=== PATIENT | male | born 1940 | race Caucasian/White ===

== ENCOUNTER 2018-11-14 09:10 | Inpatient (IN) | payer MEDICARE, BC ==
[~2018-11-14] VITALS: Ht 167.6 cm; Wt 87.1 kg
--- NOTE | 2018-11-14 09:12 | NUR ---
PT [id number], FROM HOME, C/O WEAKNESS, NAUSEA VOMITING, EMS STATES HE FELL THIS MORNING FOUND HIM ON THE FLOOR, BS 197, PT IS AAOX2, NOT IN RESPIRATORY DISTRESS, HOOKED TO MONITOR, KEPT RESTED AND COMFORTABLE, WILL CONTINUE TO MONITOR.
--- NOTE | 2018-11-14 09:20 | NUR ---
SEEN AND EXAMINED BY DR. HALL.
--- NOTE | 2018-11-14 09:24 | NUR ---
IV LINE ESTABLISHED, BLOOD DRAWNED AND SENT TO LAB.
[2018-11-14] MEDS ORDERED: ONDANSETRON HCL/PF 4 MG/2 ML VIAL ONE (09:26)
[2018-11-14] MEDS ORDERED: IV NS 0.9% 500 ML BAG IV ONE (09:30)
[2018-11-14] MEDS ORDERED: ONDANSETRON HCL/PF 4 MG/2 ML VIAL IVP ONE (09:30)
--- NOTE | 2018-11-14 09:31 | NUR ---
URINE SPECIMEN COLLECTED VIA STRAIGHT CATH AND SENT TO LAB.
[2018-11-14 09:32] LABS: BASOPHILS % (AUTO) 0.2 % (0.0-2.0); HEMATOCRIT 45 % (39-51); HEMOGLOBIN 15.8 g/dL (13.5-17.5); LYMPHOCYTES # (AUTO) 0.7 /CMM (0.8-4.8); LYMPHOCYTES % (AUTO) 8.7 % (20.0-44.0); MEAN CORPUSCULAR HGB CONC 35 g/dl (31.0-36.0); MEAN CORPUSCULAR VOLUME 90 fL (80-96); MONOCYTES # (AUTO) 0.5 /CMM (0.1-1.30); NEUTROPHILS # (AUTO) 6.5 /CMM (1.8-8.9); NEUTROPHILS % (AUTO) 85.1 % (43.0-81.0); PLATELET COUNT (AUTO) 239 /CMM (150-450); RED BLOOD CELL COUNT(AUTO) 5.03 MIL/uL (4.5-6.0); WHITE BLOOD COUNT (AUTO) 7.7 K/uL (4.3-11.0)
[2018-11-14 09:34] LABS: APPEARANCE,URINE Clear (CLEAR); BILIRUBIN,URINE Negative (NEGATIVE); BLOOD, URINE Small Ery/uL (NEGATIVE); COLOR,URINE Yellow (YELLOW); KETONES,URINE 80 (NEGATIVE); LEUKOCYTE ESTERASE ,URINE Negative (NEGATIVE); NITRITE, URINE Negative (NEGATIVE); PH,URINE 5.5 (5.0-8.0); PROTEIN,URINE 100 mg/dl (NEGATIVE); UGLUCOSE 500 MG/DL mg/dL (NEGATIVE); UROBILINOGEN,URINE 0.2 EU/dL (0.2)
[2018-11-14 09:35] LABS: BACTERIA,URINE Rare /HPF (None Seen); SQUAMOUS EPITHELIAL CELL,UR None Seen /HPF (None Seen); WBC,URINE 0-2 /HPF (0-3)
[2018-11-14] MEDS ORDERED: FLAX10003 PO (09:38)
[2018-11-14] MEDS ORDERED: GLIM2TAB3 PO (09:38)
[2018-11-14] MEDS ORDERED: VIT1CAPS44 PO (09:38)
[2018-11-14] MEDS ORDERED: AMLO5TAB4 PO (09:38)
[2018-11-14] MEDS ORDERED: CHOL400D16 PO (09:38)
[2018-11-14] MEDS ORDERED: MULT-1169 PO (09:38)
[2018-11-14] MEDS ORDERED: METF500S7 PO (09:38)
[2018-11-14] MEDS ORDERED: [UNRECOGNIZED DRUG - CODE] PO (09:38)
[2018-11-14] MEDS ORDERED: UBID100C13 PO (09:38)
[2018-11-14] MEDS ORDERED: LISI-607 PO (09:38)
[2018-11-14] MEDS ORDERED: RED600CA2 PO (09:38)
[2018-11-14 09:52] LABS: SODIUM SERUM 131 mmol/L (136-145)
[2018-11-14 09:53] LABS: CALCIUM, SERUM 9.2 mg/dL (8.5-10.1); CARBON DIOXIDE 25 mmol/L (21-32); CHLORIDE 94 mmol/L (98-107); CREATININE 1.1 mg/dL (0.6-1.3); GLUCOSE 234 mg/dL (74-106); UREA NITROGEN, BLOOD 18 mg/dL (7-18)
[2018-11-14 09:58] LABS: BILIRUBIN,TOTAL 0.7 mg/dL (0.2-1.0)
[2018-11-14 09:59] LABS: ALANINE AMINOTRANSFERASE 21 U/L (12-78); ALBUMIN 4.1 g/dL (3.4-5.0); ALKALINE PHOSPHATASE 82 U/L (46-116); ASPARTATE AMINOTRANSFERASE 24 U/L (15-37); BILIRUBIN,DIRECT 0.2 mg/dL (0.0-0.2); TOTAL PROTEIN, SERUM 7.8 g/dL (6.4-8.2)
--- NOTE | 2018-11-14 10:09 | NUR ---
PT IS WHEELED TO CT SCAN VIA [facility].
[2018-11-14] MEDS ORDERED: IV NS 0.9% 250 ML IV ONE (10:20)
[2018-11-14] MEDS ORDERED: IOHEXOL-300 100 ML VIAL IV ONE (10:20)
[2018-11-14] MEDS ORDERED: CT SWABBABLE VALVE TRANS SET 1 EA INFUS.SET MC ONE (10:20)
[2018-11-14] MEDS ORDERED: IV NS 0.9% 1,000 ML BAG IV ONE (11:00)
--- NOTE | 2018-11-14 11:08 | NUR ---
PAGED EPIC ALIYAH CALLE.
--- NOTE | 2018-11-14 11:25 | NUR ---
AT BEDSIDE FOR EVAL.
--- NOTE | 2018-11-14 11:28 | NUR ---
TELE 117-2
--- NOTE | 2018-11-14 11:40 | NUR ---
REPORT GIVEN TO EBONY CHAVARRIA FOR LITO.
[2018-11-14 12:00] VITALS: BP 146/76
[2018-11-14 12:55] VITALS: BP 146/76
[2018-11-14] MEDS ORDERED: ACETAMINOPHEN 325 MG TABLET PO PRN (13:00)
[2018-11-14] MEDS ORDERED: MAGNESIUM HYDROXIDE 30 ML UDC PO PRN (13:00)
[2018-11-14] MEDS ORDERED: DEXTROSE 50%-WATER 50 ML DISP.SYRIN IV PRN (13:00)
[2018-11-14] MEDS ORDERED: HYDROCODONE/APAP 5/325MG 1 EACH TABLET PO PRN (13:00)
[2018-11-14] MEDS ORDERED: Z GUARD REMEDY 2 OZ OINT TP PRN (13:00)
[2018-11-14] MEDS ORDERED: MAG HYDROX/AL HYDROX/SIMETH 30 ML UDC PO PRN (13:00)
[2018-11-14] MEDS ORDERED: *INSULIN REGULAR(HUMULIN R)HUM 100 UNIT/ML VIAL SQ PRN (13:00)
[2018-11-14] MEDS ORDERED: ONDANSETRON HCL/PF 4 MG/2 ML VIAL IVP PRN (13:00)
[2018-11-14 16:00] VITALS: BP 151/84
--- NOTE | 2018-11-14 16:36 | NUR ---
This is an admission note for a 78 year old male patient of Doctor Mirza who just returned to [place] via jet flight yesterday evening. Patient complains of dizziness, weakness, and spouse found patient on the floor of his room at home today. Family history includes a mother with a stroke in her 70's and a father with a major heart attack in his 60's. The patient does have a severe case of weakness and difficulty balancing. Even when attempting to ambulate with assistance the patient is off balance, unable to take a step. Post activity he complains of dizziness. The right arm is weaker than the left arm his which is his strongest extremity. This is a full code patient with his spouse as Durable Power Of Documentation Nurse due to his confusion. 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 There is a computed tomography findings of diverticulosis, as well as degenerative changes of spine, and a normal chest x-ray. The patient has low sodium and increased lactic acid, 4, refractory to a fluid bolus of saline, 2000 milliliters, decreasing to a 1.7. The patient is admitted to the direct observation and telemetry floor for further evaluation and treatment. Kevin Marx RN
[2018-11-14] MEDS: BLOOD SUGAR DIAGNOSTIC 1 EACH STRIP VI SCH ×2 (18:14→22:22)
[2018-11-14] MEDS: INSULIN REGULAR, HUMAN 100 UNIT/ML 3 ML VIAL SQ PRN ×2 (18:17→22:26)
[2018-11-14] MEDS: IV NS 0.9% 1,000 ML IV PRN (18:21)
--- NOTE | 2018-11-14 19:45 | NUR ---
CHIPPER MACHINE OPERATOR OPENING NOTE, RECEIVED PATIENT IN BED AWAKE, ALERT/ ORIENTED X2-3, NO SOB OR ANY DISTRESS NOTED AT THIS TIME. IV LAC#20 NO INFILTRATION NOTED. PATIENT HAS GENERALIZED EDEMA. ALL SAFETY MEASURES IN PLACE, BED LOCKED/LOW AND CALL LIGHT WITHIN REACH WILL CONTINUE TO MONITOR.
[2018-11-14 20:00] VITALS: BP 151/75
[2018-11-14 22:00] VITALS: BP 131/72
[2018-11-15] VITALS: BP 131/72
[2018-11-15 04:00] VITALS: BP 151/79
--- NOTE | 2018-11-15 07:30 | NUR ---
PLASTERER SPRAY GUN CLOSING NOTE, PATIENT IN BED AWAKE, ALERT/ ORIENTED X2-3, NO SOB OR ANY DISTRESS NOTED AT THIS TIME. IV LAC#20 NO INFILTRATION NOTED. ALL SAFETY MEASURES IN PLACE, BED LOCKED/LOW AND CALL LIGHT WITHIN REACH. WILL ENDORSE PATIENT TO PM RN FOR LITO.
[2018-11-15] MEDS: BLOOD SUGAR DIAGNOSTIC 1 EACH STRIP VI SCH ×4 (07:54→22:55)
[2018-11-15 08:00] VITALS: BP 139/75
[2018-11-15 08:12] LABS: BASOPHILS % (AUTO) 0.4 % (0.0-2.0); EOSINOPHILS % (AUTO) 0.7 % (0.0-6.0); HEMATOCRIT 44 % (39-51); HEMOGLOBIN 15.2 g/dL (13.5-17.5); LYMPHOCYTES # (AUTO) 1.9 /CMM (0.8-4.8); LYMPHOCYTES % (AUTO) 23.7 % (20.0-44.0); MEAN CORPUSCULAR HGB CONC 34 g/dl (31.0-36.0); MEAN CORPUSCULAR VOLUME 90 fL (80-96); MONOCYTES # (AUTO) 0.9 /CMM (0.1-1.30); MONOCYTES % (AUTO) 10.9 % (2.0-12.0); NEUTROPHILS # (AUTO) 5.1 /CMM (1.8-8.9); NEUTROPHILS % (AUTO) 64.3 % (43.0-81.0); PLATELET COUNT (AUTO) 225 /CMM (150-450); RED BLOOD CELL COUNT(AUTO) 4.93 MIL/uL (4.5-6.0); WHITE BLOOD COUNT (AUTO) 7.9 K/uL (4.3-11.0)
[2018-11-15 08:24] LABS: CALCIUM, SERUM 8.7 mg/dL (8.5-10.1); CREATININE 0.9 mg/dL (0.6-1.3); MAGNESIUM 1.9 mg/dL (1.8-2.4); PHOSPHORUS 2.4 mg/dL (2.5-4.9); POTASSIUM 4.1 mmol/L (3.5-5.1)
[2018-11-15] MEDS ORDERED: Medication Not On Formulary EA (Flaxseed Oil 1,000 MG) PO SCH (09:00)
[2018-11-15] MEDS: ASPIRIN 325 MG TABLET PO SCH (09:12)
[2018-11-15] MEDS: AMLODIPINE BESYLATE 5 MG TABLET PO SCH (09:13)
[2018-11-15] MEDS: CHOLECALCIFEROL 1,000 UNIT TABLET (VIT D3) PO SCH (09:13)
[2018-11-15] MEDS: LISINOPRIL (5MG) 5 MG TABLET PO SCH (09:14)
[2018-11-15] MEDS: IV NS 0.9% 1,000 ML IV PRN (09:28)
[2018-11-15] MEDS: INSULIN REGULAR, HUMAN 100 UNIT/ML 3 ML VIAL SQ PRN ×2 (09:33→13:17)
[2018-11-15] MEDS ORDERED: NEUTRA PHOS 1 POWD.PACKET PO ONE (11:30)
[2018-11-15 12:00] VITALS: BP 121/68
[2018-11-15 16:00] VITALS: BP 123/72
--- NOTE | 2018-11-15 18:53 | NUR ---
ms rn notes pt in bed, at bedside. gave pt 2 orange juice for bs 69 mg/dl. bs now 138 mg/dl. endorsed to pm nurse for lynette.
[2018-11-15 20:00] VITALS: BP 156/83
[2018-11-16] MEDS: IV NS 0.9% 1,000 ML IV PRN (00:17)
[2018-11-16 04:00] VITALS: BP 156/78
[2018-11-16] MEDS: BLOOD SUGAR DIAGNOSTIC 1 EACH STRIP VI SCH ×4 (07:40→22:23)
[2018-11-16] MEDS: INSULIN REGULAR, HUMAN 100 UNIT/ML 3 ML VIAL SQ PRN ×3 (07:56→17:43)
[2018-11-16 08:00] VITALS: BP 153/90
[2018-11-16] MEDS: ASPIRIN 325 MG TABLET PO SCH (08:01)
[2018-11-16] MEDS: LISINOPRIL (5MG) 5 MG TABLET PO SCH (08:01)
[2018-11-16] MEDS: AMLODIPINE BESYLATE 5 MG TABLET PO SCH (08:01)
[2018-11-16] MEDS: CHOLECALCIFEROL 1,000 UNIT TABLET (VIT D3) PO SCH (08:01)
[2018-11-16 16:00] VITALS: BP 144/81
--- NOTE | 2018-11-16 19:30 | NUR ---
MS RN OPENING NOTE RECEIVED PATIENT A/O X 2. PATIENT SEEMS CONFUSED BUT AT THE MOMENT SHOWS NO SIGNS OF DISTRESS. PATIENT IS ON ROOM AIR WITH NO SOB. AT THE MOMENT PATIENT HAS NO IV ACCESS BUT WILL APPLY ONE. PATIENT IS BED REST WITH BED ALARM ON. AND A DIAPER IN TACT. ALL SAFETY PRECAUTION APPLIED BED PLACED LOW, SIDE RAILS UP X3, AND CALL LIGHT IS WITHIN REACH. WILL CONTINUE TO MONITOR PATIENT.
[2018-11-16 20:00] VITALS: BP 157/84
[2018-11-17] MEDS: IV NS 0.9% 1,000 ML IV PRN (02:07)
[2018-11-17 04:00] VITALS: BP 140/82
[2018-11-17] MEDS: BLOOD SUGAR DIAGNOSTIC 1 EACH STRIP VI SCH ×2 (07:10→12:36)
--- NOTE | 2018-11-17 07:38 | NUR ---
MS RN CLOSING NOTE PATIENT LYING IN BED WITH NO SIGNS OF DISTRESS. PATIENT ON ROOM AIR WITH NO SOB. ALL SAFETY PRECAUTIONS APPLIED. CALL LIGHT WITHIN REACH, BED LOCKED IN LOW POSITION, AND SIDE RAILS UP X3. ENDORSED PATIENT TO MORNING NURSE.
[2018-11-17 08:00] VITALS: BP 138/86
[2018-11-17 09:32] VITALS: BP 138/86
[2018-11-17] MEDS: ASPIRIN 325 MG TABLET PO SCH (09:32)
[2018-11-17] MEDS: CHOLECALCIFEROL 1,000 UNIT TABLET (VIT D3) PO SCH (09:32)
[2018-11-17] MEDS: AMLODIPINE BESYLATE 5 MG TABLET PO SCH (09:32)
[2018-11-17] MEDS: LISINOPRIL (5MG) 5 MG TABLET PO SCH (09:32)
[2018-11-17] MEDS: INSULIN REGULAR, HUMAN 100 UNIT/ML 3 ML VIAL SQ PRN (12:39)
--- NOTE | 2018-11-17 14:49 | NUR ---
RN DC NOTE RECEIVED DC ORDER TO [facility]. REPORT GIVEN TO EBONY BEJARANO. PATIENT A/OX1-2, FORGETFUL. ON ROOM AIR, NO RESPIRATORY DISTRESS. IV REMOVED, CATH INTACT, DRESSING APPLIED. WHEN PATIENT GOT UP TO CHAIR, HE REPORTED BEING DIZZY. HX VERTIGO ENDORSED TO CARLEE. AT BEDSIDE, SIGNED DC PAPERWORK + BELONGINGS CHECKLIST. NO WOUND PICTURES TO BE TAKEN. DENIES HEADACHE AND NAUSEA. PATIENT STABLE. NO NEW MEDS.
== END 2018-11-17 15:19 | DRG 640 ==
LOC: ER 09:12 → TELE1 11:30 → MEDSG1 11-15 12:14
PROVIDERS: ADMIT Internal Medicine; ATTEND Nurse Practitioner Acute Care
DX: E86.0 Dehydration (principal); G93.41 Metabolic encephalopathy; E11.9 Type 2 diabetes mellitus without complications; E86.1 Hypovolemia; E87.1 Hypo-osmolality and hyponatremia; Z90.49 Acquired absence of other specified parts of digestive tract; G20 Parkinson's disease; I10 Essential (primary) hypertension; F02.80 Dementia in other diseases classified elsewhere, unspecified severity, without behavioral disturbance, psychotic disturbance, mood disturbance, and anxiety; E87.2 Acidosis; Z86.73 Personal history of transient ischemic attack (TIA), and cerebral infarction without residual deficits; H81.10 Benign paroxysmal vertigo, unspecified ear; R90.89 Other abnormal findings on diagnostic imaging of central nervous system; Z79.84 Long term (current) use of oral hypoglycemic drugs
CPT/HCPCS: 36415; 70450-TC; 71045-TC; 72125-TC; 80048-TC; 80076-TC; 81000-TC; 82550-TC; 82962-TC; 83605-TC; 83735-TC; 84100-TC; 84443-TC; 84484-TC; 85025-TC; 85730-TC; 87040-TC; 87081-TC; 87086-TC; 97110-TC; 97116-TC; 97530-TC; G0378; J1815; J2405; J3490; J7030; J7040; J7050; Q9967

== ENCOUNTER 2021-12-07 09:47 | Emergency (ER) | payer MEDICARE, BC ==
[~2021-12-07] VITALS: Ht 165.1 cm; Wt 80.3 kg
[~2021-12-07 09:47] MED LIST: AMLO5TAB4 PO; CHOL400D8 PO; FLAX10003 PO; GLIM2TAB31 PO; LISI-768 PO; METF500S7 PO; MULT-1169 PO; RED600CA2 PO; UBID100C13 PO; VIT1CAPS44 PO; [UNRECOGNIZED DRUG - CODE] PO
[2021-12-07 09:50] VITALS: BP 155/79
--- NOTE | 2021-12-07 10:26 | NUR ---
PT TAKEN TO RADIOLOGY
[2021-12-07] MEDS ORDERED: ACETAMINOPHEN 650 MG/20.3 ML UDC PO ONE (10:30)
--- NOTE | 2021-12-07 11:30 | NUR ---
INFORMED THAT PATIENT WILL BE DISCHARGED HOME
--- NOTE | 2021-12-07 11:35 | NUR ---
[facility] CALLED FOR TRANSPORT ETA 1330 PER SILVERIO.
--- NOTE | 2021-12-07 13:38 | NUR ---
[facility] AT BEDSIDE.
--- NOTE | 2021-12-07 13:39 | NUR ---
Patient discharged to home in stable condition. Written and verbal after care instructions given. Patient verbalizes understanding of instruction. Picked up by [facility] [email or web address].
== END 2021-12-07 14:15 | disposition home or self-care (01) ==
LOC: ER 09:52
DX: S29.9XXA Unspecified injury of thorax, initial encounter (principal); I10 Essential (primary) hypertension; E11.9 Type 2 diabetes mellitus without complications; Z79.899 Other long term (current) drug therapy; W06.XXXA Fall from bed, initial encounter; Y93.89 Activity, other specified; Y92.89 Other specified places as the place of occurrence of the external cause; Y99.8 Other external cause status
CPT/HCPCS: 72128-TC

== ENCOUNTER 2022-01-22 15:29 | Inpatient (IN) | payer MEDICARE, BC ==
[~2022-01-22] VITALS: Ht 165.1 cm; Wt 83.9 kg
[2022-01-22] MEDS ORDERED: IV NS 0.9% 1,000 ML BAG IV ONE (17:00)
[2022-01-22 17:23] LABS: BASOPHILS # (AUTO) 0.1 K/uL (0.0-0.2); BASOPHILS % (AUTO) 0.7 % (0.0-2.0); EOSINOPHILS % (AUTO) 0.8 % (0.0-6.0); HEMATOCRIT 42 % (39-51); HEMOGLOBIN 13.8 g/dL (13.5-17.5); LYMPHOCYTES # (AUTO) 0.8 K/uL (0.8-4.8); LYMPHOCYTES % (AUTO) 10.4 % (20.0-44.0); MEAN CORPUSCULAR HGB CONC 33 g/dl (31.0-36.0); MEAN CORPUSCULAR VOLUME 87 fL (80-96); MONOCYTES # (AUTO) 0.6 K/uL (0.1-1.30); MONOCYTES % (AUTO) 6.9 % (2.0-12.0); NEUTROPHILS # (AUTO) 6.7 K/uL (1.8-8.9); NEUTROPHILS % (AUTO) 81.2 % (43.0-81.0); PLATELET COUNT (AUTO) 297 K/uL (150-450); WHITE BLOOD COUNT (AUTO) 8.2 K/uL (4.3-11.0)
[2022-01-22 17:26] LABS: BILIRUBIN,URINE NEGATIVE (NEGATIVE); COLOR,URINE YELLOW (YELLOW); LEUKOCYTE ESTERASE ,URINE NEGATIVE (NEGATIVE); NITRITE, URINE NEGATIVE (NEGATIVE); PROTEIN,URINE NEGATIVE (NEGATIVE); UGLUCOSE NEGATIVE (NEGATIVE); UROBILINOGEN,URINE 0.2 EU/dL (0.2)
[2022-01-22 17:37] LABS: CALCIUM, SERUM 8.9 mg/dL (8.5-10.1); CARBON DIOXIDE 26 mmol/L (21-32); CHLORIDE 99 mmol/L (98-107); GLUCOSE 193 mg/dL (74-106); POTASSIUM 3.9 mmol/L (3.5-5.1); SODIUM SERUM 132 mmol/L (136-145); UREA NITROGEN, BLOOD 21 mg/dL (7-18)
[2022-01-22 17:40] LABS: ALANINE AMINOTRANSFERASE 35 U/L (12-78); ALBUMIN 3.6 g/dL (3.4-5.0); ALKALINE PHOSPHATASE 98 U/L (46-116); ASPARTATE AMINOTRANSFERASE 21 U/L (15-37); BILIRUBIN,DIRECT 0.1 mg/dL (0.0-0.2); BILIRUBIN,TOTAL 0.3 mg/dL (0.2-1.0); LIPASE 136 U/L (73-393); TOTAL PROTEIN, SERUM 7.2 g/dL (6.4-8.2)
[2022-01-22 18:17] LABS: BACTERIA,URINE None seen /HPF (None Seen); RBC,URINE 0-2 /HPF (0-2); SQUAMOUS EPITHELIAL CELL,UR 0-2 /HPF (None Seen); WBC,URINE 0-2 /HPF (0-3)
--- NOTE | 2022-01-22 19:05 | NUR ---
PT IN BED A/OX3 WITH GEN WEAKNESS NO AMBULATORY. L HAND #20G S/L PATENT AND INTACT. TOLERATING R/A WELL WITH NO RESP DISTRESS. AT PT'S BEDSIDE
[2022-01-22 19:08] LABS: BAND % (MANUAL) 1 % (0.0-5.0); LYMPHOCYTES % (MANUAL) 16 % (16-48); MONOCYTES % (MANUAL) 5 % (0-11.0); NEUTROPHILS % (MANUAL) 78 (42-76)
[2022-01-22] MEDS ORDERED: SENNOSIDES/DOCUSATE SODIUM 1 TAB TABLET PO SCH (20:00)
[2022-01-22] MEDS ORDERED: POLYETHYLENE GLYCOL 3350 17 GM POWD.PACK PO ONE (20:00)
--- NOTE | 2022-01-22 21:48 | NUR ---
COVID ANTIGEN SWAB COLLECTED AND SENT TO LAB
--- NOTE | 2022-01-22 22:23 | NUR ---
KATHERINE ROTHMAN GAS AND OIL CHECKER AT PT'S BEDSIDE DISCUSSING ADMISSION & CARE WITH FAMILY
[2022-01-22] MEDS ORDERED: MAG HYDROX/AL HYDROX/SIMETH 30 ML UDC PO PRN (22:30)
[2022-01-22] MEDS ORDERED: IV NS 0.9% 1,000 ML IV PRN (22:30)
[2022-01-22] MEDS ORDERED: Z GUARD REMEDY 4 OZ OINT TP PRN (22:30)
[2022-01-22] MEDS ORDERED: MAGNESIUM HYDROXIDE 30 ML UDC PO PRN (22:30)
[2022-01-22] MEDS ORDERED: ENOXAPARIN SODIUM 40 MG/0.4 ML DISP.SYRIN SQ SCH (22:30)
[2022-01-22] MEDS ORDERED: ACETAMINOPHEN 325 MG TABLET PO PRN (22:30)
[2022-01-22] MEDS ORDERED: ONDANSETRON HCL/PF 4 MG/2 ML VIAL IVP PRN (22:30)
[2022-01-22] MEDS ORDERED: DEXTROSE 50%-WATER 50 ML DISP.SYRIN IV PRN (22:30)
[2022-01-22] MEDS ORDERED: ZOLPIDEM TARTRATE 5 MG TABLET PO PRN (22:30)
[2022-01-23] MEDS ORDERED: LACTULOSE 10 G/15 ML UDC (PYXIS) PO ONE
--- NOTE | 2022-01-23 02:48 | NUR ---
PT SLEEPING WELL WITH NO ACUTE DISTRESS. SAFETY MEASURES IN PLACE
--- NOTE | 2022-01-23 05:08 | NUR ---
AIRLINE LOUNGE RECEPTIONIST AT PT'S BEDSIDE
--- NOTE | 2022-01-23 05:14 | NUR ---
IV ESTABLISHED RFA #18G S/L
[2022-01-23 05:23] LABS: BASOPHILS % (AUTO) 0.5 % (0.0-2.0); EOSINOPHILS % (AUTO) 2.2 % (0.0-6.0); HEMATOCRIT 43 % (39-51); HEMOGLOBIN 14.3 g/dL (13.5-17.5); LYMPHOCYTES # (AUTO) 2.2 K/uL (0.8-4.8); LYMPHOCYTES % (AUTO) 30.6 % (20.0-44.0); MEAN CORPUSCULAR HGB CONC 33 g/dl (31.0-36.0); MEAN CORPUSCULAR VOLUME 87 fL (80-96); MONOCYTES # (AUTO) 0.8 K/uL (0.1-1.30); MONOCYTES % (AUTO) 10.9 % (2.0-12.0); NEUTROPHILS % (AUTO) 55.8 % (43.0-81.0); PLATELET COUNT (AUTO) 304 K/uL (150-450); WHITE BLOOD COUNT (AUTO) 7.2 K/uL (4.3-11.0)
[2022-01-23 05:35] LABS: CALCIUM, SERUM 8.5 mg/dL (8.5-10.1); CREATININE 0.8 mg/dL (0.6-1.3); MAGNESIUM 2.1 mg/dL (1.8-2.4); PHOSPHORUS 2.9 mg/dL (2.5-4.9); POTASSIUM 3.6 mmol/L (3.5-5.1)
[2022-01-23] MEDS ORDERED: ENOXAPARIN SODIUM 40 MG/0.4 ML DISP.SYRIN SQ ONE (06:35)
[2022-01-23] MEDS ORDERED: LACTULOSE 10 G/15 ML UDC (PYXIS) ONE (06:36)
--- NOTE | 2022-01-23 06:49 | NUR ---
INCONTINENT LARGE URINE AND LARGE BM NOTED. PT KEPT CLEAN AND DRY. REPOSITIONED PT. SKIN INTACT. SAFETY MEASURES IN PLACE.
--- NOTE | 2022-01-23 06:50 | NUR ---
PERINEAL CARE DONE. LINEN CHANGED
[2022-01-23 07:00] VITALS: BP 137/74
[2022-01-23] MEDS: BLOOD SUGAR DIAGNOSTIC 1 EACH STRIP VI SCH ×5 (08:27→22:33)
--- NOTE | 2022-01-23 08:27 | NUR ---
BS 135MG/DL
[2022-01-23] MEDS ORDERED: AMLODIPINE BESYLATE 5 MG TABLET ONE (08:32)
[2022-01-23] MEDS ORDERED: MULTIVITAMIN/LUTEIN/MINERALS 1 TAB ONE (08:32)
[2022-01-23] MEDS ORDERED: CHOLECALCIFEROL 1,000 UNIT TABLET (VIT D3) ONE (08:33)
[2022-01-23] MEDS: GLIMEPIRIDE 4 MG TABLET PO SCH ×3 (08:33→17:22)
[2022-01-23] MEDS ORDERED: METFORMIN 500 MG TABLET ONE (08:33)
[2022-01-23] MEDS ORDERED: MULTIVIT W/MINERALS 1 TAB TABLET ONE (08:33)
[2022-01-23] MEDS: CHOLECALCIFEROL 1,000 UNIT TABLET (VIT D3) PO SCH (08:34)
[2022-01-23] MEDS: MULTIVITAMIN/LUTEIN/MINERALS 1 TAB PO SCH (08:34)
[2022-01-23] MEDS: LISINOPRIL (5MG) 5 MG TABLET PO SCH ×2 (08:37→11:13)
[2022-01-23] MEDS: AMLODIPINE BESYLATE 5 MG TABLET PO SCH (08:37)
--- NOTE | 2022-01-23 08:37 | NUR ---
BREAKFAST TRAY PROVIDED, ZAHRAA WELL. PT AWAKE AND VERBALLY RESPONSIVE.
--- NOTE | 2022-01-23 08:56 | NUR ---
PT REPORT GIVEN TO EBONY WILLAMS
[2022-01-23] MEDS ORDERED: RED YEAST RICE EXTRACT 1200 MG PO SCH (09:00)
[2022-01-23] MEDS ORDERED: MULTIVIT W/MINERALS 1 TAB TABLET PO SCH (09:00)
[2022-01-23] MEDS ORDERED: Medication Not On Formulary EA (Flaxseed Oil 1,000 MG) PO SCH (09:00)
[2022-01-23] MEDS ORDERED: METFORMIN 500 MG TABLET PO SCH (09:00)
[2022-01-23 10:00] VITALS: BP 137/74
--- NOTE | 2022-01-23 10:00 | NUR ---
RN MS NOTES RECEIVED PT FROM E.R. EBONY ALCOCER AND E.R. STAFF VIA [facility], PT IS AWAKE, ALERT AND ORIENTED, DENIES PAIN, NOT IN DISTRESS, TOLERATES ROOM AIR, ASSISTED TO BED, MADE COMFORTABLE, ROOM SET UP ORIENTATION PROVIDED TO PT, VERBALIZED UNDERSTANDING, CALL LIGHT PLACED WITHIN REACH, VITALS TAKEN AND RECORDED.
[2022-01-23 16:00] VITALS: BP 130/68
[2022-01-23] MEDS: *INSULIN REGULAR(HUMULIN R)HUM 100 UNIT/ML VIAL SQ PRN ×2 (17:31→22:25)
--- NOTE | 2022-01-23 18:30 | NUR ---
RN MS NOTES PT IN BED, AWAKE, ALERT AND ORIENTED, DENIES PAIN, NOT IN DISTRESS, IV FLUIDS INFUSING WELL, SEEN BY DR. GARZA, COMPLETED MRI LUMBAR, RECEIVED ORDER FROM DR. MCKINNEY TO OBTAIN CONSENT FOR LUMBAR PUNCTURE, PM CARE PROVIDED, ALL NEEDS ATTENDED.
--- NOTE | 2022-01-23 18:33 | NUR ---
new order to hold lovenox for LP in am.
--- NOTE | 2022-01-23 19:35 | NUR ---
MS RN OPENING NOTE RECEIVED PATIENT IN BED; AWAKE, ALERT AND ORIENTED X 2-3. ABLE TO MAKE NEEDS KNOWN. BREATHING EVEN AND NONLABORED. NO ACUTE DISTRESS, NO C/O PAIN OR DISCOMFORT NOTED AT THIS TIME. WITH IV ACCESS TO RIGHT HAND 20 G, WITH NS AT 75 ML/HR, IV INTACT, AND PATENT. SAFETY PRECAUTIONS IMPLEMENTED: CALL LIGHT AND TABLE WITHIN REACH, SIDE RAILS UP X 2, BED IN LOWEST LOCKED POSITION. WILL CONTINUE TO MONITOR PT THROUGHOUT SHIFT.
[2022-01-23 20:00] VITALS: BP 136/80
[2022-01-23] MEDS: SENNOSIDES/DOCUSATE SODIUM 1 TAB TABLET PO SCH (21:48)
[2022-01-24 06:49] LABS: CALCIUM, SERUM 8.7 mg/dL (8.5-10.1); CREATININE 0.8 mg/dL (0.6-1.3); POTASSIUM 3.3 mmol/L (3.5-5.1)
[2022-01-24 07:00] VITALS: BP 132/64
--- NOTE | 2022-01-24 07:05 | NUR ---
MS RN CLOSING NOTE LEFT PATIENT IN BED; AWAKE, ALERT AND ORIENTED X 2-3. ABLE TO MAKE NEEDS KNOWN. BREATHING EVEN AND NONLABORED. NO ACUTE DISTRESS, NO C/O PAIN OR DISCOMFORT NOTED AT THIS TIME. WITH IV ACCESS TO RIGHT HAND 20 G, WITH NS AT 75 ML/HR, IV INTACT, AND PATENT. SAFETY PRECAUTIONS IMPLEMENTED: CALL LIGHT AND TABLE WITHIN REACH, SIDE RAILS UP X 2, BED IN LOWEST LOCKED POSITION. WILL ENDORSE PT TO AM SHIFT NURSE FOR LITO.
--- NOTE | 2022-01-24 07:25 | NUR ---
MS RN OPENING NOTE RECEIVED PT ASLEEP IN BED, EASILY AROUSED. PT A/O X2-3, CONFUSED AT TIMES, REORIENTED PT NEEDED. PT ON ROOM AIR, TOLERATING WELL. NO SOB NOTED. NOT IN ANY SIGN OF RESPIRATORY DISTRESS. IV ACCESS IN RIGHT HAND G#18, INTACT AND PATENT WITH NS 75ML/HR. SAFETY MEASURES IN PLACE: BED IN LOWEST AND LOCKED POSITION, BED RAILS UP X2, BED ALARM ON, AND CALL LIGHT WITHIN REACH. WILL CONTINUE TO MONITOR PT.
[2022-01-24] MEDS: BLOOD SUGAR DIAGNOSTIC 1 EACH STRIP VI SCH ×4 (07:53→22:03)
[2022-01-24] MEDS: INSULIN REGULAR, HUMAN 100 UNIT/ML 3 ML VIAL SQ PRN ×3 (07:57→16:50)
[2022-01-24 08:00] VITALS: BP 118/74
[2022-01-24] MEDS: CHOLECALCIFEROL 1,000 UNIT TABLET (VIT D3) PO SCH (09:45)
[2022-01-24] MEDS: GLIMEPIRIDE 4 MG TABLET PO SCH ×2 (09:46→16:30)
[2022-01-24] MEDS: LISINOPRIL (5MG) 5 MG TABLET PO SCH (09:46)
[2022-01-24] MEDS: AMLODIPINE BESYLATE 5 MG TABLET PO SCH (09:46)
[2022-01-24] MEDS: MULTIVITAMIN/LUTEIN/MINERALS 1 TAB PO SCH (09:47)
[2022-01-24] MEDS ORDERED: POTASSIUM CHLORIDE 20 MEQ TAB.PRT.SR PO SCH (10:00)
--- NOTE | 2022-01-24 15:05 | NUR ---
RN NOTE PT ON S/P LUMBAR PUNCTURE PERFORMED BY DR. RITIKA STOLL AT BEDSIDE. DRY PRESSURE DRESSING AT PUNCTURE SITE C/D/I. NO ACTIVE BLEEDING OR ANY DRAINAGE AT THE SITE NOTED. PT IS LAYING FLAT IN BED. PT DENIES PAIN OR DISCOMFORT AT THIS TIME. VITAL SIGNS: BP 133/72, P 80, TEMP 98.1, R 18, SPO2 98% ON ROOM AIR. WILL CONTINUE TO MONITOR PT.
[2022-01-24 16:00] VITALS: BP 140/78
[2022-01-24 16:03] LABS: CSF GLUCOSE 108 mg/dL (40-70); CSF PROTEIN 45.79 mg/dL (15-45)
--- NOTE | 2022-01-24 19:00 | NUR ---
MS RN OPENING NOTE PATIENT IS SLEEPING IN BED, EASILY BEING AROUSED. PT A/O X2-3, CONFUSED SOMETIMES, NEED TO BE REORIENTED NEEDED. PT IS ON ROOM AIR, TOLERATING WELL. NO S/S OF SOB OR DISTRESS. IV ACCESS AT HIS RIGHT, FA #18G, INTACT AND PATENT. SL. PATIENT DENIES OF HAVING PAIN. SAFETY MEASURES IN PLACE: BED IN LOWEST AND LOCKED POSITION, BED RAILS UP X2, BED ALARM ON, AND CALL LIGHT WITHIN REACH. WILL CONTINUE TO MONITOR PT AND PROVIDE THE CARE PATIENT NEEDS..
--- NOTE | 2022-01-24 19:16 | NUR ---
MS RN CLOSING NOTE RECEIVED PT ASLEEP IN BED, EASILY AROUSED. PT A/O X2-3, CONFUSED AT TIMES, REORIENTED PT NEEDED. PT ON ROOM AIR, TOLERATING WELL. NO SOB NOTED. NOT IN ANY SIGN OF RESPIRATORY DISTRESS. IV ACCESS IN RIGHT HAND G#18, INTACT AND PATENT WITH NS 75ML/HR. PT ON S/P LUMBAR PUNCTURE, DRY PRESSURE DRESSING AT PUNCTURE SITE C/D/I. NO ACTIVE BLEEDING OR ANY DRAINAGE AT THE SITE NOTED. PT DENIES PAIN OR DISCOMFORT AT THIS TIME. ALL NEEDS ATTENDED. KEPT CLEAN AND COMFORTABLE AT ALL TIMES. SAFETY MEASURES IN PLACE: BED IN LOWEST AND LOCKED POSITION, BED RAILS UP X2, BED ALARM ON, AND CALL LIGHT WITHIN REACH. ENDORSED TO DEGREASER OPERATOR NURSE FOR LITO.
--- NOTE | 2022-01-24 20:00 | NUR ---
MS RN OPENING NOTE RECEIVED PT ASLEEP IN BED, EASILY AROUSED. PT A/O X2-3, CONFUSED AT TIMES, REORIENTED PT NEEDED. PT ON ROOM AIR, TOLERATING WELL. NO SOB NOTED. NOT IN ANY SIGN OF RESPIRATORY DISTRESS. IV ACCESS IN RIGHT HAND G#18, INTACT AND PATENT WITH NS 75ML/HR. SAFETY MEASURES IN PLACE: BED IN LOWEST AND LOCKED POSITION, BED RAILS UP X2, BED ALARM ON, AND CALL LIGHT WITHIN REACH. WILL CONTINUE TO MONITOR PT. Addendum: 01/24/22 at 6752 by DO GRIDER RN PT ON S/P LUMBAR PUNCTURE, DRY PRESSURE DRESSING AT PUNCTURE SITE C/D/I. NO ACTIVE BLEEDING OR ANY DRAINAGE AT THE SITE NOTED.
[2022-01-24 20:10] VITALS: BP 128/80
[2022-01-24] MEDS: SENNOSIDES/DOCUSATE SODIUM 1 TAB TABLET PO SCH (21:42)
--- NOTE | 2022-01-24 22:20 | NUR ---
MS RN NOTE PATIENT WAS TRANSFERRED TO BE CARE BY DO RN. REPORT WAS GIVEN TO RR. MEDICATIONS DUE WERE GIVEN TO THE PATIENT, AND BS CHECK FOR 2200 WAS 129, WITH 0 COVERAGE PER THE SLIDING SCALE. PATIENT IS SITTING IN BED WATCHING TV. HE IS ON RA, NO S/S OF SOB OR DISTRESS. TOLERATED WELL. VITAL SIGNS ARE WITHIN NORMAL LEVEL.
[2022-01-25 06:28] LABS: CALCIUM, SERUM 8.1 mg/dL (8.5-10.1); CREATININE 0.8 mg/dL (0.6-1.3); POTASSIUM 3.4 mmol/L (3.5-5.1)
[2022-01-25] MEDS: BLOOD SUGAR DIAGNOSTIC 1 EACH STRIP VI SCH ×4 (06:48→22:06)
--- NOTE | 2022-01-25 06:58 | NUR ---
MS RN CLOSING NOTE PT ASLEEP IN BED, EASILY AROUSED. PT A/O X2-3, CONFUSED AT TIMES, REORIENTED PT NEEDED. PT ON ROOM AIR, TOLERATING WELL. NO SOB NOTED. NOT IN ANY SIGN OF RESPIRATORY DISTRESS. IV ACCESS IN RIGHT HAND G#18, INTACT AND PATENT. PT ON S/P LUMBAR PUNCTURE, DRY PRESSURE DRESSING AT PUNCTURE SITE C/D/I. NO ACTIVE BLEEDING OR ANY DRAINAGE AT THE SITE NOTED. PT DENIES PAIN OR DISCOMFORT AT THIS TIME. ALL NEEDS ATTENDED. KEPT CLEAN AND COMFORTABLE AT ALL TIMES. SAFETY MEASURES IN PLACE: BED IN LOWEST AND LOCKED POSITION, BED RAILS UP X2, BED ALARM ON, AND CALL LIGHT WITHIN REACH. ENDORSED TO DAY SHIFT NURSE FOR LITO.
[2022-01-25 07:00] VITALS: BP 139/83
--- NOTE | 2022-01-25 07:46 | NUR ---
MS RN OPENING NOTE PT ASLEEP IN BED, EASILY AROUSED. PT A/O X2-3, ON ROOM AIR, TOLERATING WELL. NO SOB NOTED. NOT IN ANY SIGN OF RESPIRATORY DISTRESS. IV ACCESS IN RIGHT HAND G#18, INTACT AND PATENT. PT ON S/P LUMBAR PUNCTURE, DRY PRESSURE DRESSING AT PUNCTURE SITE C/D/I. NO ACTIVE BLEEDING OR ANY DRAINAGE AT THE SITE NOTED. AWAITS RESULT. SAFETY MEASURES IN PLACE: BED IN LOWEST AND LOCKED POSITION, BED RAILS UP X2, BED ALARM ON, AND CALL LIGHT WITHIN REACH. WILL MONITOR.
[2022-01-25] MEDS: GLIMEPIRIDE 4 MG TABLET PO SCH ×2 (08:40→16:26)
[2022-01-25] MEDS: MULTIVITAMIN/LUTEIN/MINERALS 1 TAB PO SCH (08:40)
[2022-01-25] MEDS: CHOLECALCIFEROL 1,000 UNIT TABLET (VIT D3) PO SCH (08:41)
[2022-01-25] MEDS: LISINOPRIL (5MG) 5 MG TABLET PO SCH (08:41)
[2022-01-25] MEDS: AMLODIPINE BESYLATE 5 MG TABLET PO SCH (08:42)
[2022-01-25] MEDS ORDERED: POTASSIUM CHLORIDE 20 MEQ TAB.PRT.SR PO SCH (10:00)
[2022-01-25] MEDS: *INSULIN REGULAR(HUMULIN R)HUM 100 UNIT/ML VIAL SQ PRN (12:18)
[2022-01-25] MEDS: INSULIN REGULAR, HUMAN 100 UNIT/ML 3 ML VIAL SQ PRN (12:28)
[2022-01-25 16:00] VITALS: BP_SYST 113; BP_SYST 132; BP_DIAS 51; BP_DIAS 72
--- NOTE | 2022-01-25 19:20 | NUR ---
MS RN OPENING NOTE PATIENT IS IN BED, AWAKE, A/O X 3. PT IS ON RA, TOLERATING WELL. NO S/S OF SOB OR DISTRESS. IV ACCESS IS RIGHT, HAND, #18G, INTACT AND PATENT. SL. PATIENT DENIES OF HAVING PAIN. SAFETY MEASURES IN PLACE: BED IN LOWEST AND LOCKED POSITION, BED RAILS UP X2, BED ALARM ON, AND CALL LIGHT WITHIN REACH. WILL CONTINUE TO MONITOR PT AND PROVIDE THE CARE PATIENT NEEDS.
--- NOTE | 2022-01-25 19:23 | NUR ---
MS RN CLOSING NOTE PT ASLEEP IN BED, EASILY AROUSED. PT A/O X2-3, CONFUSED AT TIMES, REORIENTED PT NEEDED. PT ON ROOM AIR, TOLERATING WELL. NO SOB NOTED. NOT IN ANY SIGN OF RESPIRATORY DISTRESS. IV ACCESS IN RIGHT HAND G#18, INTACT AND PATENT. ANY DRAINAGE PT DENIES PAIN OR DISCOMFORT AT THIS TIME. ALL NEEDS ATTENDED. KEPT CLEAN AND COMFORTABLE AT ALL TIMES. ALL NEEDS ATTENDED.KEPT COMFORTABLE. SAFETY MEASURES IN PLACE: BED IN LOWEST AND LOCKED POSITION, BED RAILS UP X2, BED ALARM ON, AND CALL LIGHT WITHIN REACH. ENDORSED TO DRUG ABUSE WORKER NURSE FOR LITO.
[2022-01-25 21:05] VITALS: BP 145/72
[2022-01-25] MEDS: SENNOSIDES/DOCUSATE SODIUM 1 TAB TABLET PO SCH (22:06)
[2022-01-26 06:16] LABS: CALCIUM, SERUM 8.3 mg/dL (8.5-10.1); CREATININE 0.8 mg/dL (0.6-1.3); POTASSIUM 3.3 mmol/L (3.5-5.1)
[2022-01-26] MEDS: BLOOD SUGAR DIAGNOSTIC 1 EACH STRIP VI SCH ×4 (06:38→21:21)
--- NOTE | 2022-01-26 07:11 | NUR ---
MS RN CLOSING NOTE PATIENT IS IN BED, AWAKE, A/O X 3. PT IS ON RA, TOLERATING WELL. NO S/S OF SOB OR DISTRESS. IV ACCESS IS RIGHT, HAND, #18G, INTACT AND PATENT. SL. PATIENT DENIES OF HAVING PAIN. BS CHECK AT THIS MORNING IS 89, APPLE JUICE PROVIDED TO THE PATIENT. SAFETY MEASURES IN PLACE: BED IN LOWEST AND LOCKED POSITION, BED RAILS UP X2, BED ALARM ON, AND CALL LIGHT WITHIN REACH. WILL ENDORSE THE NEXT SHIFT NURSE FOR CONTINUING PATIENT CARE.
--- NOTE | 2022-01-26 07:30 | NUR ---
RN OPENING NOTE RECEIVED PATIENT IN BED, AWAKE, A/O X3, VERBALLY RESPONSIVE, NO SIGNS OF ACUTE DISTRESS NOTED. ON ROOM AIR, TOLERATING WELL, NO SOB NOTED, BREATHING EVEN AND UNLABORED. NOTED WITH IV ACCESS ON RIGHT HAND #18G, INTACT AND PATENT, SALINE LOCKED. DENIES ANY PAIN AT THIS TIME. SAFETY MEASURE IN PLACE. BED IN LOWEST AND LOCKED POSITION, SIDE RAILS UP X2, CALL LIGHT PLACED WITHIN EASY REACH. WILL CONTINUE TO MONITOR PATIENT.
[2022-01-26 08:00] VITALS: BP 154/89
[2022-01-26] MEDS: MULTIVITAMIN/LUTEIN/MINERALS 1 TAB PO SCH (08:49)
[2022-01-26] MEDS: LISINOPRIL (5MG) 5 MG TABLET PO SCH (08:49)
[2022-01-26] MEDS: AMLODIPINE BESYLATE 5 MG TABLET PO SCH (08:49)
[2022-01-26] MEDS: GLIMEPIRIDE 4 MG TABLET PO SCH ×2 (08:49→17:26)
[2022-01-26] MEDS: CHOLECALCIFEROL 1,000 UNIT TABLET (VIT D3) PO SCH (08:49)
--- NOTE | 2022-01-26 09:40 | NUR ---
WOUND CARE CONSULT: PT PRESENTS WITH LEFT BUTTOCK DRY, NONTENDER AREAS OF PINK DISCOLORATION WELL SCARRING TO BACK, PRESENT ON ADMISSION. RECOMMENDATIONS MADE FOR SKIN PROTECTION. DISCUSSED WITH NURSING STAFF. MD IN AGREEMENT WITH PLAN OF CARE.
[2022-01-26] MEDS ORDERED: POTASSIUM CHLORIDE 20 MEQ POWDER PACKET PO ONE (10:00)
[2022-01-26] MEDS: INSULIN REGULAR, HUMAN 100 UNIT/ML 3 ML VIAL SQ PRN ×2 (11:47→16:53)
[2022-01-26 16:00] VITALS: BP 153/72
--- NOTE | 2022-01-26 18:41 | NUR ---
RN CLOSING NOTE PATIENT RESTING IN BED, A/O X3. NO SIGNS OF ACUTE DISTRESS NOTED. STABLE ON ROOM AIR, NO SOB NOTED, BREATHING EVEN AND UNLABORED. IV ACCESS ON RIGHT HAND #18G, INTACT AND PATENT, SALINE LOCKED. DENIES ANY PAIN. ALL DUE MEDS GIVEN, TAKEN WELL. NO SIGNIFICANT CHANGES THIS SHIFT. SAFETY MEASURE MAINTAINED. BED IN LOWEST AND LOCKED POSITION, SIDE RAILS UP X2, CALL LIGHT PLACED WITHIN EASY REACH. WILL ENDORSE TO NEXT SHIFT FOR CONTINUITY OF CARE.
--- NOTE | 2022-01-26 19:32 | NUR ---
RN OPENING NOTE PATIENT AWAKE IN BED. A/OX4. NO S/S OF DISTRESS, BREATHING WITHOUT DIFFICULTY ON ROOM AIR. R-HAMD #18 SL INTACT AND PATENT. SAFETY MEASURES IN PLACE: BED LOCKED AND AT LOWEST POSITION, RAILS UP X2, CALL MALIK WITHIN REACH. WILL CONTINUE TO MONITOR PATIENT.
[2022-01-26] MEDS: SENNOSIDES/DOCUSATE SODIUM 1 TAB TABLET PO SCH (21:21)
[2022-01-26] MEDS: *INSULIN REGULAR(HUMULIN R)HUM 100 UNIT/ML VIAL SQ PRN (21:26)
[2022-01-27] MEDS: INSULIN REGULAR, HUMAN 100 UNIT/ML 3 ML VIAL SQ PRN ×2 (06:35→12:35)
[2022-01-27] MEDS: BLOOD SUGAR DIAGNOSTIC 1 EACH STRIP VI SCH ×4 (06:35→22:27)
--- NOTE | 2022-01-27 07:02 | NUR ---
RN CLOSING NOTE PATIENT ASLEEP IN BED. A/OX3. NO S/S OF DISTRESS, BREATHING WITHOUT DIFFICULTY ON ROOM AIR. R-HAND #18 SL INTACT AND PATENT. SAFETY MEASURES IN PLACE: BED LOCKED AND AT LOWEST POSITION, RAILS UP X2, CALL MALIK WITHIN REACH. WILL ENDORSE TO NEXT SHIFT FOR LITO.
--- NOTE | 2022-01-27 07:50 | NUR ---
RN OPENING NOTE RECEIVED PATIENT IN BED, AWAKE, A/O X3, VERBALLY RESPONSIVE. NO S/S OF DISTRESS OR SOB NOTED, PT ON RA BREATHING EVEN AND NONLABORED. IV ACCESS ON RIGHT HAND #18G, INTACT AND PATENT, SALINE LOCKED. DENIES ANY PAIN AT THIS TIME. SAFETY PRECAUTIONS IN PLACE: CALL LIGHT AND TABLE WITHIN REACH, HOB ELEVATED. SIDE RAILS UP X 2, BED IN LOWEST AND LOCKED POSITION. WILL CONTINUE MONITOR PATIENT'S CONDITION THROUGH THE SHIFT AND PROVIDE THE CARE.
[2022-01-27 08:00] VITALS: BP 146/77
[2022-01-27] MEDS: MULTIVITAMIN/LUTEIN/MINERALS 1 TAB PO SCH (09:09)
[2022-01-27] MEDS: GLIMEPIRIDE 4 MG TABLET PO SCH ×2 (09:10→17:21)
[2022-01-27] MEDS: AMLODIPINE BESYLATE 5 MG TABLET PO SCH (09:10)
[2022-01-27] MEDS: CHOLECALCIFEROL 1,000 UNIT TABLET (VIT D3) PO SCH (09:10)
[2022-01-27] MEDS: LISINOPRIL (5MG) 5 MG TABLET PO SCH (09:11)
[2022-01-27 16:00] VITALS: BP 125/74
--- NOTE | 2022-01-27 16:55 | NUR ---
RN NOTE- REPORT GIVEN TO EBONY BOUCHER FOR LITO.
[2022-01-27] MEDS: *INSULIN REGULAR(HUMULIN R)HUM 100 UNIT/ML VIAL SQ PRN (18:44)
--- NOTE | 2022-01-27 18:51 | NUR ---
RN Closing Note Patient AOx4 able to explain his concerns. Patients was at bedside throughout shift providing showroom salesperson. Al questions answered and educated on importance of following plan of care in hospital and after discharge. All safety precautions taken, call light and table within reach and bed at lowest position. Will endorse report to night nurse for continuity of care.
--- NOTE | 2022-01-27 19:30 | NUR ---
MS RN OPENING NOTE RECEIVED PT AWAKE IN BED. A/O X3 AND ABLE TO MAKE NEEDS KNOWN. PT STABLE ON ROOM AIR. NO SOB OR S/S OF RESPIRATORY DISTRESS. BREATHING EVEN AND UNLABORED. IV ACCESS R WRIST 22G, INTACT AND PATENT. SAFETY PRECAUTIONS IN PLACE. BED IN LOWEST LOCKED POSITION, HOB ELEVATED, SIDE RAILS UP X3, AND CALL LIGHT AND TABLE WITHIN REACH. ALL NEEDS MET AT THIS TIME.
[2022-01-27] MEDS: SENNOSIDES/DOCUSATE SODIUM 1 TAB TABLET PO SCH (22:29)
[2022-01-28 05:58] LABS: BASOPHILS # (AUTO) 0.1 K/uL (0.0-0.2); BASOPHILS % (AUTO) 0.6 % (0.0-2.0); EOSINOPHILS % (AUTO) 3.3 % (0.0-6.0); HEMATOCRIT 40 % (39-51); HEMOGLOBIN 13.2 g/dL (13.5-17.5); LYMPHOCYTES % (AUTO) 23.5 % (20.0-44.0); MEAN CORPUSCULAR HGB CONC 33 g/dl (31.0-36.0); MEAN CORPUSCULAR VOLUME 86 fL (80-96); MONOCYTES # (AUTO) 0.9 K/uL (0.1-1.30); MONOCYTES % (AUTO) 9.9 % (2.0-12.0); NEUTROPHILS # (AUTO) 5.5 K/uL (1.8-8.9); NEUTROPHILS % (AUTO) 62.7 % (43.0-81.0); PLATELET COUNT (AUTO) 312 K/uL (150-450); RED BLOOD CELL COUNT(AUTO) 4.63 MIL/uL (4.5-6.0); WHITE BLOOD COUNT (AUTO) 8.7 K/uL (4.3-11.0)
[2022-01-28] MEDS: BLOOD SUGAR DIAGNOSTIC 1 EACH STRIP VI SCH ×3 (06:41→17:44)
--- NOTE | 2022-01-28 06:41 | NUR ---
MS RN CLOSING NOTE PT AWAKE IN BED. A/O X3 AND ABLE TO MAKE NEEDS KNOWN. PT STABLE ON ROOM AIR. NO SOB OR S/S OF RESPIRATORY DISTRESS. BREATHING EVEN AND UNLABORED. IV ACCESS R WRIST 22G SL, INTACT AND PATENT. ALL DUE MEDS GIVEN ORDERED. KEPT CLEAN AND DRY. SAFETY PRECAUTIONS IN PLACE AT ALL TIMES. BED IN LOWEST LOCKED POSITION, HOB ELEVATED, SIDE RAILS UP X3, AND CALL LIGHT AND TABLE WITHIN REACH. ALL NEEDS MET AT THIS TIME AND WILL ENDORSE TO ONCOMING NURSE FOR LITO.
[2022-01-28 06:52] LABS: CALCIUM, SERUM 8.8 mg/dL (8.5-10.1); CARBON DIOXIDE 29 mmol/L (21-32); CHLORIDE 101 mmol/L (98-107); CREATININE 0.8 mg/dL (0.6-1.3); GLUCOSE 100 mg/dL (74-106); MAGNESIUM 2.1 mg/dL (1.8-2.4); PHOSPHORUS 4.4 mg/dL (2.5-4.9); POTASSIUM 3.4 mmol/L (3.5-5.1); SODIUM SERUM 138 mmol/L (136-145); UREA NITROGEN, BLOOD 14 mg/dL (7-18)
--- NOTE | 2022-01-28 07:55 | NUR ---
RN OPENING NOTE PATIENT AWAKE IN BED RESTING AT THE MOMENT A/O X 2-3. NO S/S OF PAIN NOTED AT THIS TIME. ON ROOM AIR, NO DISTRESS OR SHORTNESS OF BREATH NOTED. IV ACCESS R WRIST #22G, INTACT, PATENT AND FLUSHING WELL. FALL AND SAFETY MEASURES IN PLACE, BED ALARM ON, BED IN LOW AND LOCK POSITION, CALL LIGHT AND TABLE WITHIN EASY REACH, SIDE RAILS UP X2. WILL CONTINUE TO MONITOR.
[2022-01-28] MEDS: LISINOPRIL (5MG) 5 MG TABLET PO SCH (09:35)
[2022-01-28] MEDS: MULTIVITAMIN/LUTEIN/MINERALS 1 TAB PO SCH (09:35)
[2022-01-28 09:36] VITALS: BP 159/74
[2022-01-28] MEDS: AMLODIPINE BESYLATE 5 MG TABLET PO SCH (09:36)
[2022-01-28] MEDS: GLIMEPIRIDE 4 MG TABLET PO SCH ×2 (09:36→17:28)
[2022-01-28] MEDS: CHOLECALCIFEROL 1,000 UNIT TABLET (VIT D3) PO SCH (09:37)
[2022-01-28] MEDS ORDERED: POTASSIUM CHLORIDE 20 MEQ TAB.PRT.SR PO SCH (11:00)
[2022-01-28] MEDS: INSULIN REGULAR, HUMAN 100 UNIT/ML 3 ML VIAL SQ PRN ×2 (12:01→17:45)
--- NOTE | 2022-01-28 19:37 | NUR ---
PT ESCORT NOTE PATIENT WAS DISCHARGE IN STABLE MEDICAL CONDITION, A/O X2-3. V/S TAKEN, STABLE AND RECORDED. NO IV ACCESS. NAME ARM BAND REMOVED. PATIENT REFUSED SKIN ASSESSMENT AND PICTURES, PER PREVIOUS SKIN ASSESSMENT NO OPEN WOUND. ALL BELONGINGS CHECKED AND BELONGINGS LIST SIGNED. HEALTH TEACHING AND DISCHARGE INSTRUCTIONS GIVEN TO PATIENT, PATIENT'S AND NURSE AT FACILITY, AND VERBALIZED UNDERSTANDING, REPORT WAS GIVE TO SAMSON AT [facility], [phone]. INSTRUCTED PATIENT AND FAMILY IN CASE OF EMERGENCY TO CALL 911 OR GO TO THE NEAREST ER. PATIENT LEFT UNIT VIA GURNEY WITH NO SIGNS OF DISTRESS, ACCOMPANIED BY PARAMEDICS AND . CHARGE NURSE AWARE OF DISCHARGE.
== END 2022-01-28 19:35 | DRG 73 ==
LOC: ER 15:34 → TRANSITION 01-23 02:37 → MED 01-23 08:52
PROVIDERS: ADMIT Nurse Practitioner Acute Care; ATTEND Student in an Organized Health Care Education/Training Program
PROC: 009U3ZX Drainage of Spinal Canal, Percutaneous Approach, Diagnostic (ICD-10-PCS; principal; 2022-01-24)
PROC: B01BYZZ Fluoroscopy of Spinal Cord using Other Contrast (ICD-10-PCS; 2022-01-24)
DX: E11.42 Type 2 diabetes mellitus with diabetic polyneuropathy (principal); G93.41 Metabolic encephalopathy; E87.1 Hypo-osmolality and hyponatremia; R53.1 Weakness; K56.41 Fecal impaction; G20 Parkinson's disease; I10 Essential (primary) hypertension; Z86.16 Personal history of COVID-19; Z86.73 Personal history of transient ischemic attack (TIA), and cerebral infarction without residual deficits; Z90.49 Acquired absence of other specified parts of digestive tract; F02.80 Dementia in other diseases classified elsewhere, unspecified severity, without behavioral disturbance, psychotic disturbance, mood disturbance, and anxiety; E03.8 Other specified hypothyroidism; Z74.09 Other reduced mobility; Z20.822 Contact with and (suspected) exposure to COVID-19; Z79.84 Long term (current) use of oral hypoglycemic drugs; M54.10 Radiculopathy, site unspecified
CPT/HCPCS: 36415; 71045-TC; 72148-TC; 80048-TC; 80076-TC; 81001; 82962-TC; 83605-TC; 83690-TC; 83735-TC; 84100-TC; 84155-TC; 84157; 84166; 84439-TC; 84443-TC; 84484-TC; 85025-TC; 86592; 86694; 87040-TC; 87081-TC; 89051-TC; 97110-TC; 97112-TC; 97530-TC; 97535-TC; C9803; G0378; J1650; J1815; J2405; J7030

== ENCOUNTER 2023-04-12 22:39 | Emergency (ER) | payer MEDICARE, BC ==
[~2023-04-12] VITALS: Ht 165.1 cm; Wt 81.6 kg
[2023-04-12] MEDS ORDERED: CEFEPIME 1 GM VIAL ONE (23:32)
[2023-04-12] MEDS: IV NS 0.9% 1,000 ML BAG IV ONE (23:38)
[2023-04-12] MEDS: CEFEPIME 1 GM in IV D5W 50 ML IV ONE (23:38)
[2023-04-12 23:39] LABS: BASOPHILS # (AUTO) 0.1 K/uL (0.0-0.2); BASOPHILS % (AUTO) 0.6 % (0.0-2.0); EOSINOPHILS # (AUTO) 0.1 K/uL (0.0-0.7); EOSINOPHILS % (AUTO) 1.1 % (0.0-6.0); HEMATOCRIT 47 % (39-51); HEMOGLOBIN 15.9 g/dL (13.5-17.5); LYMPHOCYTES # (AUTO) 0.6 K/uL (0.8-4.8); LYMPHOCYTES % (AUTO) 5.9 % (20.0-44.0); MEAN CORPUSCULAR HEMOGLOBIN 30 PG (26.0-33.0); MEAN CORPUSCULAR HGB CONC 34 g/dl (31.0-36.0); MEAN CORPUSCULAR VOLUME 89 fL (80-96); MONOCYTES # (AUTO) 0.3 K/uL (0.1-1.30); MONOCYTES % (AUTO) 3.5 % (2.0-12.0); NEUTROPHILS # (AUTO) 8.6 K/uL (1.8-8.9); NEUTROPHILS % (AUTO) 88.9 % (43.0-81.0); PLATELET COUNT (AUTO) 253 K/uL (150-450); RED BLOOD CELL COUNT(AUTO) 5.29 MIL/uL (4.5-6.0); RED CELL DISTRIBUTION WIDTH 14.7 % (11.5-15.0); WHITE BLOOD COUNT (AUTO) 9.7 K/uL (4.3-11.0)
[2023-04-12] MEDS ORDERED: VANCOMYCIN 1 GM /D5W 250 ML PB IV ONE (23:43)
[2023-04-12 23:49] LABS: CALCIUM, SERUM 8.9 mg/dL (8.5-10.1); CARBON DIOXIDE 23 mmol/L (21-32); CHLORIDE 99 mmol/L (98-107); CREATININE 0.9 mg/dL (0.6-1.3); GLUCOSE 171 mg/dL (74-106); POTASSIUM 3.9 mmol/L (3.5-5.1); SODIUM SERUM 135 mmol/L (136-145); UREA NITROGEN, BLOOD 22 mg/dL (7-18)
[2023-04-12 23:51] LABS: INR 1.02 (0.91-1.10); PARTIAL THROMBOPLASTIN TIME 28.2 SEC (24.3-34.3); PROTHROMBIN TIME 10.8 SECS (9.2-11.1)
[2023-04-12 23:56] LABS: ALANINE AMINOTRANSFERASE 28 U/L (12-78); ALBUMIN 3.6 g/dL (3.4-5.0); ALKALINE PHOSPHATASE 102 U/L (46-116); ASPARTATE AMINOTRANSFERASE 21 U/L (15-37); BILIRUBIN,DIRECT 0.2 mg/dL (0.0-0.2); BILIRUBIN,TOTAL 0.8 mg/dL (0.2-1.0); TOTAL PROTEIN, SERUM 7.3 g/dL (6.4-8.2)
[2023-04-13] MEDS: VANCOMYCIN 1 GM in IV D5W 250 ML IV ONE (00:09)
[2023-04-13 01:48] LABS: APPEARANCE,URINE CLEAR (CLEAR); BILIRUBIN,URINE NEGATIVE (NEGATIVE); BLOOD, URINE NEGATIVE Ery/uL (NEGATIVE); COLOR,URINE YELLOW (YELLOW); KETONES,URINE 1+ mg/dL (NEGATIVE); LEUKOCYTE ESTERASE ,URINE NEGATIVE (NEGATIVE); NITRITE, URINE NEGATIVE (NEGATIVE); PROTEIN,URINE NEGATIVE (NEGATIVE); UGLUCOSE NEGATIVE (NEGATIVE); UROBILINOGEN,URINE 0.2 EU/dL (0.2)
[2023-04-13 01:50] LABS: ADD URINE CULTURE NO; BACTERIA,URINE Rare /HPF (None Seen); RBC,URINE 0-2 /HPF (0-2); SQUAMOUS EPITHELIAL CELL,UR Few /HPF (None Seen); WBC,URINE 0-2 /HPF (0-3)
[2023-04-13 04:45] VITALS: BP 125/68; TEMP 99.9; O2SAT 98
[2023-04-22] MEDS ORDERED: METR500T PO (09:12)
== END 2023-04-13 04:59 | disposition home or self-care (01) ==
LOC: ER 22:41
DX: F03.90 Unspecified dementia, unspecified severity, without behavioral disturbance, psychotic disturbance, mood disturbance, and anxiety (principal); R53.1 Weakness; R00.0 Tachycardia, unspecified; I10 Essential (primary) hypertension; E11.9 Type 2 diabetes mellitus without complications; Z79.82 Long term (current) use of aspirin; Z79.899 Other long term (current) drug therapy; Z20.822 Contact with and (suspected) exposure to COVID-19
CPT/HCPCS: 99285; 96365; 71045; 93005; 87804 ×2; 84145; 85025; 80048; 87040 ×2; 83605; 80076; 36415 ×2; 84484 ×2; 85730; 96367; 87426; 87086; 81001; J3370; J0692

== ENCOUNTER 2023-04-20 08:27 | Inpatient (IN) | payer MEDICARE, BC ==
[~2023-04-20] VITALS: Ht 165.1 cm; Wt 81.6 kg
[2023-04-20] MEDS ORDERED: ONDANSETRON HCL/PF 4 MG/2 ML VIAL ONE (08:34)
[2023-04-20] MEDS ORDERED: FAMOTIDINE/PF INJ 20 MG/2 ML VIAL IV ONE (08:34)
[2023-04-20] MEDS: ONDANSETRON HCL/PF 4 MG/2 ML VIAL IVP ONE (08:49)
[2023-04-20] MEDS: FAMOTIDINE/PF INJ 20 MG/2 ML VIAL IV ONE (08:49)
[2023-04-20 08:56] LABS: BASOPHILS % (AUTO) 0.2 % (0.0-2.0); EOSINOPHILS # (AUTO) 0.1 K/uL (0.0-0.7); HEMATOCRIT 48 % (39-51); HEMOGLOBIN 16.1 g/dL (13.5-17.5); LYMPHOCYTES # (AUTO) 0.6 K/uL (0.8-4.8); LYMPHOCYTES % (AUTO) 7.9 % (20.0-44.0); MEAN CORPUSCULAR HEMOGLOBIN 30 PG (26.0-33.0); MEAN CORPUSCULAR HGB CONC 34 g/dl (31.0-36.0); MEAN CORPUSCULAR VOLUME 89 fL (80-96); MONOCYTES # (AUTO) 0.8 K/uL (0.1-1.30); MONOCYTES % (AUTO) 10.9 % (2.0-12.0); NEUTROPHILS # (AUTO) 6.1 K/uL (1.8-8.9); PLATELET COUNT (AUTO) 286 K/uL (150-450); RED BLOOD CELL COUNT(AUTO) 5.35 MIL/uL (4.5-6.0); RED CELL DISTRIBUTION WIDTH 14.6 % (11.5-15.0); WHITE BLOOD COUNT (AUTO) 7.6 K/uL (4.3-11.0)
[2023-04-20 09:05] LABS: CALCIUM, SERUM 9.2 mg/dL (8.5-10.1); CARBON DIOXIDE 24 mmol/L (21-32); CHLORIDE 96 mmol/L (98-107); CREATININE 0.9 mg/dL (0.6-1.3); GLUCOSE 140 mg/dL (74-106); POTASSIUM 3.3 mmol/L (3.5-5.1); SODIUM SERUM 131 mmol/L (136-145); UREA NITROGEN, BLOOD 22 mg/dL (7-18)
[2023-04-20 09:21] LABS: APPEARANCE,URINE CLEAR (CLEAR); BILIRUBIN,URINE 1+ (NEGATIVE); BLOOD, URINE NEGATIVE Ery/uL (NEGATIVE); COLOR,URINE YELLOW (YELLOW); KETONES,URINE 2+ mg/dL (NEGATIVE); LEUKOCYTE ESTERASE ,URINE NEGATIVE (NEGATIVE); NITRITE, URINE NEGATIVE (NEGATIVE); PROTEIN,URINE NEGATIVE (NEGATIVE); UGLUCOSE NEGATIVE (NEGATIVE); UROBILINOGEN,URINE 0.2 EU/dL (0.2)
[2023-04-20 09:21] LABS: ALANINE AMINOTRANSFERASE 21 U/L (12-78); ALBUMIN 3.5 g/dL (3.4-5.0); ALKALINE PHOSPHATASE 92 U/L (46-116); ASPARTATE AMINOTRANSFERASE 17 U/L (15-37); BILIRUBIN,DIRECT 0.2 mg/dL (0.0-0.2); BILIRUBIN,TOTAL 0.8 mg/dL (0.2-1.0); LIPASE 28 U/L (16-77); TOTAL PROTEIN, SERUM 7.2 g/dL (6.4-8.2)
[2023-04-20 09:28] LABS: ADD URINE CULTURE NO; BACTERIA,URINE Rare /HPF (None Seen); RBC,URINE 0-2 /HPF (0-2); SQUAMOUS EPITHELIAL CELL,UR Few /HPF (None Seen); WBC,URINE 0-2 /HPF (0-3)
[2023-04-20] MEDS ORDERED: POTASSIUM CL. PREMIX PERIPHER. 100 ML ONE (10:35)
[2023-04-20] MEDS: IV NS 0.9% 500 ML BAG IV ONE (10:42)
[2023-04-20] MEDS: POTASSIUM CL. PREMIX PERIPHER. 50 ML IV SCH (10:47)
[2023-04-20 12:29] VITALS: BP 50/61; TEMP 98.6; O2SAT 100
[2023-04-20] MEDS ORDERED: ACETAMINOPHEN 325 MG TABLET PO PRN (12:30)
[2023-04-20] MEDS ORDERED: ONDANSETRON HCL/PF 4 MG/2 ML VIAL IVP PRN (12:30)
[2023-04-20] MEDS: PANTOPRAZOLE 40 MG VIAL IV SCH (12:46)
[2023-04-20] MEDS: ENOXAPARIN SODIUM 40 MG/0.4 ML DISP.SYRIN SQ SCH (12:47)
[2023-04-20] MEDS: IV NS 0.9% 1,000 ML IV PRN (12:55)
[2023-04-20 16:00] VITALS: BP 103/58; TEMP 98.4; O2SAT 95
[2023-04-20] MEDS ORDERED: SITA100T PO (16:48)
[2023-04-20] MEDS ORDERED: OLME1TAB90 PO (16:48)
[2023-04-20] MEDS ORDERED: INSU100I30 SQ (16:48)
[2023-04-20] MEDS: METRONIDAZOLE 500MG/ NS 100ML 500 MG in PREMIX 1 EA IV SCH (17:11)
[2023-04-20 20:00] VITALS: BP 88/48; TEMP 98.6; O2SAT 96
[2023-04-21] VITALS: BP 96/52; TEMP 98.6; O2SAT 96
[2023-04-21 04:00] VITALS: BP 141/66; TEMP 97.5; O2SAT 99
[2023-04-21 06:44] LABS: BASOPHILS % (AUTO) 0.2 % (0.0-2.0); EOSINOPHILS # (AUTO) 0.2 K/uL (0.0-0.7); EOSINOPHILS % (AUTO) 3.1 % (0.0-6.0); HEMATOCRIT 35 % (39-51); HEMOGLOBIN 12.2 g/dL (13.5-17.5); LYMPHOCYTES % (AUTO) 33.2 % (20.0-44.0); MEAN CORPUSCULAR HEMOGLOBIN 31 PG (26.0-33.0); MEAN CORPUSCULAR HGB CONC 35 g/dl (31.0-36.0); MEAN CORPUSCULAR VOLUME 88 fL (80-96); MONOCYTES # (AUTO) 0.8 K/uL (0.1-1.30); MONOCYTES % (AUTO) 13.2 % (2.0-12.0); NEUTROPHILS # (AUTO) 3.1 K/uL (1.8-8.9); NEUTROPHILS % (AUTO) 50.3 % (43.0-81.0); PLATELET COUNT (AUTO) 248 K/uL (150-450); RED BLOOD CELL COUNT(AUTO) 3.94 MIL/uL (4.5-6.0); RED CELL DISTRIBUTION WIDTH 14.4 % (11.5-15.0); WHITE BLOOD COUNT (AUTO) 6.1 K/uL (4.3-11.0)
[2023-04-21 07:19] LABS: CALCIUM, SERUM 8.3 mg/dL (8.5-10.1); CREATININE 0.9 mg/dL (0.6-1.3); MAGNESIUM 1.6 mg/dL (1.8-2.4); POTASSIUM 3.2 mmol/L (3.5-5.1)
[2023-04-21 08:00] VITALS: BP 116/67; TEMP 98.6; O2SAT 96
[2023-04-21] MEDS ORDERED: MAGNESIUM OXIDE 400 MG TABLET PO SCH (08:00)
[2023-04-21] MEDS: POTASSIUM CHLORIDE 20 MEQ TAB.PRT.SR PO ONE (08:58)
[2023-04-21] MEDS: MAGNESIUM OXIDE 400 MG TABLET PO ONE (08:58)
[2023-04-21 16:00] VITALS: BP 148/62; TEMP 98.1; O2SAT 96
[2023-04-21 20:00] VITALS: BP 151/69; TEMP 98.9; O2SAT 98
[2023-04-22 04:00] VITALS: BP 145/80; TEMP 98; O2SAT 99
[2023-04-22 07:42] LABS: BASOPHILS % (AUTO) 0.1 % (0.0-2.0); EOSINOPHILS # (AUTO) 0.3 K/uL (0.0-0.7); EOSINOPHILS % (AUTO) 3.7 % (0.0-6.0); HEMATOCRIT 39 % (39-51); HEMOGLOBIN 13.5 g/dL (13.5-17.5); MEAN CORPUSCULAR HEMOGLOBIN 31 PG (26.0-33.0); MEAN CORPUSCULAR HGB CONC 35 g/dl (31.0-36.0); MEAN CORPUSCULAR VOLUME 88 fL (80-96); MONOCYTES # (AUTO) 0.9 K/uL (0.1-1.30); MONOCYTES % (AUTO) 11.7 % (2.0-12.0); NEUTROPHILS # (AUTO) 4.4 K/uL (1.8-8.9); NEUTROPHILS % (AUTO) 57.5 % (43.0-81.0); PLATELET COUNT (AUTO) 293 K/uL (150-450); RED BLOOD CELL COUNT(AUTO) 4.42 MIL/uL (4.5-6.0); RED CELL DISTRIBUTION WIDTH 14.8 % (11.5-15.0); WHITE BLOOD COUNT (AUTO) 7.6 K/uL (4.3-11.0)
[2023-04-22 08:00] VITALS: BP 160/63; TEMP 98.2; O2SAT 96
[2023-04-22 08:05] LABS: CALCIUM, SERUM 8.8 mg/dL (8.5-10.1); CARBON DIOXIDE 25 mmol/L (21-32); CHLORIDE 104 mmol/L (98-107); CREATININE 0.8 mg/dL (0.6-1.3); GLUCOSE 128 mg/dL (74-106); MAGNESIUM 1.7 mg/dL (1.8-2.4); PHOSPHORUS 2.5 mg/dL (2.5-4.9); POTASSIUM 3.7 mmol/L (3.5-5.1); SODIUM SERUM 138 mmol/L (136-145); UREA NITROGEN, BLOOD 10 mg/dL (7-18)
[2023-04-22] MEDS: PANTOPRAZOLE 40 MG/PACK PACK PO SCH (08:57)
[2023-04-22] MEDS: MAGNESIUM OXIDE 400 MG TABLET PO ONE ×2 (09:04→10:19)
[2023-04-22] MEDS ORDERED: METR500T PO (09:12)
[2023-04-22 16:00] VITALS: BP 185/82; TEMP 98.1; O2SAT 97
[2023-04-22] MEDS: hydrALAZINE HCL 25 MG TABLET PO ONE (17:29)
[2023-04-22 20:00] VITALS: BP 164/87; TEMP 98.2; O2SAT 96
== END 2023-04-22 20:18 | DRG 372 ==
LOC: ER 08:32 → MEDSG1 11:40
PROVIDERS: ADMIT Nurse Practitioner Acute Care; ATTEND Nurse Practitioner Acute Care
DX: A04.9 Bacterial intestinal infection, unspecified (principal); D68.69 Other thrombophilia; E87.1 Hypo-osmolality and hyponatremia; E86.0 Dehydration; E87.6 Hypokalemia; E66.01 Morbid (severe) obesity due to excess calories; E83.42 Hypomagnesemia; E86.1 Hypovolemia; I10 Essential (primary) hypertension; Z79.84 Long term (current) use of oral hypoglycemic drugs; Z86.73 Personal history of transient ischemic attack (TIA), and cerebral infarction without residual deficits; Z68.30 Body mass index [BMI] 30.0-30.9, adult; E11.9 Type 2 diabetes mellitus without complications; G20.A1 Parkinson's disease without dyskinesia, without mention of fluctuations; F02.80 Dementia in other diseases classified elsewhere, unspecified severity, without behavioral disturbance, psychotic disturbance, mood disturbance, and anxiety; Z20.822 Contact with and (suspected) exposure to COVID-19; Z74.01 Bed confinement status
CPT/HCPCS: 36415; 71045-TC; 80048-TC; 80076-TC; 81001; 83690-TC; 83735-TC; 84100-TC; 84484-TC; 85025-TC; 87086-TC; 97110-TC; 97112-TC; 97116-TC; 97530-TC; A4216; A4223; C9113; G0378; J1650; J2405; J3480; J3490; J7030; J7040

== ENCOUNTER 2023-08-11 13:23 | Emergency (ER) | payer MEDICARE, BC ==
[~2023-08-11] VITALS: Ht 165.1 cm; Wt 81.2 kg
[~2023-08-11 13:23] MED LIST changes: -AMLO5TAB4 PO; -CHOL400D8 PO; -FLAX10003 PO; -GLIM2TAB31 PO; +INSU100I30 SQ; -LISI-768 PO; -METF500S7 PO; +METR500T PO; -MULT-1169 PO; +OLME1TAB90 PO; -RED600CA2 PO; +SITA100T PO; -UBID100C13 PO; -VIT1CAPS44 PO; -[UNRECOGNIZED DRUG - CODE] PO
[2023-08-11 14:19] LABS: BASOPHILS # (AUTO) 0.1 K/uL (0.0-0.2); EOSINOPHILS # (AUTO) 0.2 K/uL (0.0-0.7); EOSINOPHILS % (AUTO) 2.4 % (0.0-6.0); HEMATOCRIT 41 % (39-51); HEMOGLOBIN 14.3 g/dL (13.5-17.5); LYMPHOCYTES # (AUTO) 1.2 K/uL (0.8-4.8); LYMPHOCYTES % (AUTO) 17.4 % (20.0-44.0); MEAN CORPUSCULAR HEMOGLOBIN 30 PG (26.0-33.0); MEAN CORPUSCULAR HGB CONC 35 g/dl (31.0-36.0); MEAN CORPUSCULAR VOLUME 87 fL (80-96); MONOCYTES # (AUTO) 0.7 K/uL (0.1-1.30); MONOCYTES % (AUTO) 9.5 % (2.0-12.0); NEUTROPHILS # (AUTO) 4.8 K/uL (1.8-8.9); NEUTROPHILS % (AUTO) 69.7 % (43.0-81.0); PLATELET COUNT (AUTO) 323 K/uL (150-450); RED BLOOD CELL COUNT(AUTO) 4.73 MIL/uL (4.5-6.0); RED CELL DISTRIBUTION WIDTH 14.9 % (11.5-15.0); WHITE BLOOD COUNT (AUTO) 6.9 K/uL (4.3-11.0)
[2023-08-11 14:31] LABS: ALBUMIN 3.3 g/dL (3.4-5.0); BILIRUBIN,DIRECT 0.1 mg/dL (0.0-0.2); BILIRUBIN,TOTAL 0.4 mg/dL (0.2-1.0); CALCIUM, SERUM 9.5 mg/dL (8.5-10.1); CREATININE 0.9 mg/dL (0.6-1.3); POTASSIUM 3.7 mmol/L (3.5-5.1); TOTAL PROTEIN, SERUM 7.5 g/dL (6.4-8.2)
[2023-08-11 16:00] LABS: APPEARANCE,URINE CLEAR (CLEAR); BILIRUBIN,URINE NEGATIVE (NEGATIVE); BLOOD, URINE TRACE-INTA Ery/uL (NEGATIVE); COLOR,URINE YELLOW (YELLOW); KETONES,URINE NEGATIVE (NEGATIVE); LEUKOCYTE ESTERASE ,URINE TRACE (NEGATIVE); NITRITE, URINE NEGATIVE (NEGATIVE); PH,URINE 6.5 (5.0-8.0); PROTEIN,URINE 1+ mg/dl (NEGATIVE); UGLUCOSE 1+ mg/dL (NEGATIVE); UROBILINOGEN,URINE 0.2 EU/dL (0.2)
[2023-08-11 16:14] LABS: ADD URINE CULTURE YES; BACTERIA,URINE 1+ /HPF (None Seen); SQUAMOUS EPITHELIAL CELL,UR Few /HPF (None Seen)
[2023-08-11] MEDS ORDERED: NA P133E8 RC (16:27)
[2023-08-11] MEDS ORDERED: CEFD300C3 PO (16:27)
[2023-08-11] MEDS ORDERED: POLY17PO4 PO (16:27)
[2023-08-11 17:43] VITALS: BP 189/93; TEMP 98.5; O2SAT 96
== END 2023-08-11 17:44 | disposition home or self-care (01) ==
LOC: ER 13:31
DX: K59.00 Constipation, unspecified (principal); N13.9 Obstructive and reflux uropathy, unspecified; R14.0 Abdominal distension (gaseous); I10 Essential (primary) hypertension; E11.9 Type 2 diabetes mellitus without complications; G20.A1 Parkinson's disease without dyskinesia, without mention of fluctuations; R33.9 Retention of urine, unspecified; F02.80 Dementia in other diseases classified elsewhere, unspecified severity, without behavioral disturbance, psychotic disturbance, mood disturbance, and anxiety; Z86.73 Personal history of transient ischemic attack (TIA), and cerebral infarction without residual deficits; Z99.3 Dependence on wheelchair
CPT/HCPCS: 36415; 80048-TC; 80076-TC; 81001; 83690-TC; 85025-TC

== ENCOUNTER 2023-08-31 19:29 | Emergency (ER) | payer MEDICARE, BC ==
[~2023-08-31] VITALS: Ht 162.6 cm; Wt 77.1 kg
[~2023-08-31 19:29] MED LIST changes: +CEFD300C3 PO; +NA P133E8 RC; +POLY17PO4 PO
[2023-08-31 20:46] LABS: BASOPHILS % (AUTO) 0.3 % (0.0-2.0); EOSINOPHILS % (AUTO) 0.2 % (0.0-6.0); HEMATOCRIT 47 % (39-51); HEMOGLOBIN 15.7 g/dL (13.5-17.5); LYMPHOCYTES # (AUTO) 0.6 K/uL (0.8-4.8); LYMPHOCYTES % (AUTO) 4.1 % (20.0-44.0); MEAN CORPUSCULAR HEMOGLOBIN 29 PG (26.0-33.0); MEAN CORPUSCULAR HGB CONC 34 g/dl (31.0-36.0); MEAN CORPUSCULAR VOLUME 87 fL (80-96); MONOCYTES # (AUTO) 1.1 K/uL (0.1-1.30); MONOCYTES % (AUTO) 7.3 % (2.0-12.0); NEUTROPHILS # (AUTO) 13.7 K/uL (1.8-8.9); NEUTROPHILS % (AUTO) 88.1 % (43.0-81.0); PLATELET COUNT (AUTO) 250 K/uL (150-450); RED BLOOD CELL COUNT(AUTO) 5.39 MIL/uL (4.5-6.0); RED CELL DISTRIBUTION WIDTH 14.9 % (11.5-15.0); WHITE BLOOD COUNT (AUTO) 15.6 K/uL (4.3-11.0)
[2023-08-31 20:54] LABS: CALCIUM, SERUM 9.3 mg/dL (8.5-10.1); CARBON DIOXIDE 26 mmol/L (21-32); CHLORIDE 96 mmol/L (98-107); GLUCOSE 250 mg/dL (74-106); POTASSIUM 3.6 mmol/L (3.5-5.1); SODIUM SERUM 129 mmol/L (136-145); UREA NITROGEN, BLOOD 19 mg/dL (7-18)
[2023-08-31 20:59] LABS: ALANINE AMINOTRANSFERASE 40 U/L (12-78); ALBUMIN 3.6 g/dL (3.4-5.0); ALKALINE PHOSPHATASE 121 U/L (46-116); ASPARTATE AMINOTRANSFERASE 27 U/L (15-37); BILIRUBIN,DIRECT 0.1 mg/dL (0.0-0.2); BILIRUBIN,TOTAL 0.6 mg/dL (0.2-1.0); LIPASE 39 U/L (16-77); TOTAL PROTEIN, SERUM 7.7 g/dL (6.4-8.2)
[2023-08-31] MEDS: CEFTRIAXONE 1GM BAG (ER ONLY) 1 GM/50 ML PIGGYBACK IV ONE (21:00)
[2023-08-31] MEDS ORDERED: CIPR-262 PO (21:58)
[2023-08-31] MEDS ORDERED: METR500T PO (21:58)
[2023-08-31] MEDS ORDERED: TAMSULOSIN 0.4 MG CAP.SR.24H ONE (22:00)
[2023-08-31] MEDS ORDERED: CEFTRIAXONE 1GM BAG (ER ONLY) 50 ML IV ONE (22:17)
[2023-08-31] MEDS: TAMSULOSIN 0.4 MG CAP.SR.24H PO ONE (22:25)
[2023-08-31 23:24] VITALS: BP 142/106; TEMP 98.4; O2SAT 95
[2023-08-31 23:25] LABS: APPEARANCE,URINE TURBID (CLEAR); BILIRUBIN,URINE NEGATIVE (NEGATIVE); BLOOD, URINE 3+ Ery/uL (NEGATIVE); COLOR,URINE YELLOW (YELLOW); KETONES,URINE TRACE mg/dL (NEGATIVE); LEUKOCYTE ESTERASE ,URINE 3+ (NEGATIVE); NITRITE, URINE NEGATIVE (NEGATIVE); PH,URINE 6.5 (5.0-8.0); PROTEIN,URINE 2+ mg/dl (NEGATIVE); UGLUCOSE 1+ mg/dL (NEGATIVE); UROBILINOGEN,URINE 0.2 EU/dL (0.2)
[2023-08-31 23:33] LABS: ADD URINE CULTURE YES; BACTERIA,URINE Few /HPF (None Seen); RBC,URINE 51-80 /HPF (0-2); SQUAMOUS EPITHELIAL CELL,UR Rare /HPF (None Seen); WBC,URINE 21-50 /HPF (0-3)
== END 2023-08-31 23:25 | disposition home or self-care (01) ==
LOC: ER 19:33
DX: N39.0 Urinary tract infection, site not specified (principal); R10.817 Generalized abdominal tenderness; I10 Essential (primary) hypertension; F03.90 Unspecified dementia, unspecified severity, without behavioral disturbance, psychotic disturbance, mood disturbance, and anxiety; E11.9 Type 2 diabetes mellitus without complications; Z86.73 Personal history of transient ischemic attack (TIA), and cerebral infarction without residual deficits
CPT/HCPCS: 99285; 74176; 96374; 71045; 93005; 85025; 80048; 87086; 83690; 80076; 81001; 36415; 84484; J0696

== ENCOUNTER 2023-09-02 17:44 | Emergency (ER) | payer MEDICARE, BC ==
[~2023-09-02] VITALS: Ht 165.1 cm; Wt 69.4 kg
[~2023-09-02 17:44] MED LIST changes: +CIPR-262 PO
[2023-09-02 18:24] LABS: BASOPHILS # (AUTO) 0.1 K/uL (0.0-0.2); BASOPHILS % (AUTO) 0.6 % (0.0-2.0); EOSINOPHILS # (AUTO) 0.2 K/uL (0.0-0.7); EOSINOPHILS % (AUTO) 1.8 % (0.0-6.0); HEMATOCRIT 44 % (39-51); HEMOGLOBIN 14.7 g/dL (13.5-17.5); LYMPHOCYTES # (AUTO) 1.4 K/uL (0.8-4.8); LYMPHOCYTES % (AUTO) 16.7 % (20.0-44.0); MEAN CORPUSCULAR HEMOGLOBIN 29 PG (26.0-33.0); MEAN CORPUSCULAR HGB CONC 34 g/dl (31.0-36.0); MEAN CORPUSCULAR VOLUME 87 fL (80-96); MONOCYTES # (AUTO) 0.7 K/uL (0.1-1.30); MONOCYTES % (AUTO) 8.6 % (2.0-12.0); NEUTROPHILS # (AUTO) 6.1 K/uL (1.8-8.9); NEUTROPHILS % (AUTO) 72.3 % (43.0-81.0); PLATELET COUNT (AUTO) 279 K/uL (150-450); RED BLOOD CELL COUNT(AUTO) 5.04 MIL/uL (4.5-6.0); RED CELL DISTRIBUTION WIDTH 15.2 % (11.5-15.0); WHITE BLOOD COUNT (AUTO) 8.4 K/uL (4.3-11.0)
[2023-09-02 18:31] LABS: CALCIUM, SERUM 9.6 mg/dL (8.5-10.1); CARBON DIOXIDE 30 mmol/L (21-32); CHLORIDE 95 mmol/L (98-107); CREATININE 1.1 mg/dL (0.6-1.3); GLUCOSE 179 mg/dL (74-106); SODIUM SERUM 131 mmol/L (136-145); UREA NITROGEN, BLOOD 16 mg/dL (7-18)
[2023-09-02 22:27] VITALS: BP 192/97; TEMP 98; O2SAT 100
== END 2023-09-02 22:35 | disposition home or self-care (01) ==
LOC: ER 18:05
DX: R31.9 Hematuria, unspecified (principal); R33.9 Retention of urine, unspecified; G20.A1 Parkinson's disease without dyskinesia, without mention of fluctuations; F02.80 Dementia in other diseases classified elsewhere, unspecified severity, without behavioral disturbance, psychotic disturbance, mood disturbance, and anxiety; I10 Essential (primary) hypertension; E11.9 Type 2 diabetes mellitus without complications; Z86.73 Personal history of transient ischemic attack (TIA), and cerebral infarction without residual deficits; Z87.440 Personal history of urinary (tract) infections
CPT/HCPCS: 36415; 80048-TC; 85025-TC

== ENCOUNTER 2024-03-03 16:38 | Emergency (ER) | payer MEDICARE, BC ==
[~2024-03-03] VITALS: Ht 165.1 cm; Wt 77.1 kg
[2024-03-03 16:56] VITALS: TEMP 98.1
[2024-03-03 17:22] LABS: BASOPHILS # (AUTO) 0.1 K/uL (0.0-0.2); BASOPHILS % (AUTO) 0.5 % (0.0-2.0); EOSINOPHILS # (AUTO) 0.1 K/uL (0.0-0.7); EOSINOPHILS % (AUTO) 1.1 % (0.0-6.0); HEMATOCRIT 48 % (39-51); HEMOGLOBIN 16.1 g/dL (13.5-17.5); LYMPHOCYTES # (AUTO) 1.5 K/uL (0.8-4.8); LYMPHOCYTES % (AUTO) 13.4 % (20.0-44.0); MEAN CORPUSCULAR HEMOGLOBIN 31 PG (26.0-33.0); MEAN CORPUSCULAR HGB CONC 34 g/dl (31.0-36.0); MEAN CORPUSCULAR VOLUME 91 fL (80-96); NEUTROPHILS # (AUTO) 8.4 K/uL (1.8-8.9); PLATELET COUNT (AUTO) 250 K/uL (150-450); RED BLOOD CELL COUNT(AUTO) 5.26 MIL/uL (4.5-6.0); RED CELL DISTRIBUTION WIDTH 15.8 % (11.5-15.0)
[2024-03-03 17:30] LABS: CALCIUM, SERUM 9.3 mg/dL (8.5-10.1); CARBON DIOXIDE 30 mmol/L (21-32); CHLORIDE 99 mmol/L (98-107); GLUCOSE 158 mg/dL (74-106); SODIUM SERUM 133 mmol/L (136-145); UREA NITROGEN, BLOOD 17 mg/dL (7-18)
[2024-03-03 17:42] LABS: ALBUMIN 3.7 g/dL (3.4-5.0); ALKALINE PHOSPHATASE 109 U/L (46-116); BILIRUBIN,TOTAL 0.6 mg/dL (0.2-1.0); LIPASE 39 U/L (16-77); NT-PRO BNP 97 pg/mL (0-125); TOTAL PROTEIN, SERUM 8.1 g/dL (6.4-8.2)
[2024-03-03 17:46] LABS: POTASSIUM 6.1 mmol/L (3.5-5.1)
[2024-03-03 17:55] LABS: ALANINE AMINOTRANSFERASE 28 U/L (12-78); ASPARTATE AMINOTRANSFERASE 29 U/L (15-37)
[2024-03-03 19:02] LABS: CALCIUM, SERUM 9.1 mg/dL (8.5-10.1); CARBON DIOXIDE 28 mmol/L (21-32); CHLORIDE 101 mmol/L (98-107); CREATININE 1.1 mg/dL (0.6-1.3); GLUCOSE 162 mg/dL (74-106); POTASSIUM 3.5 mmol/L (3.5-5.1); SODIUM SERUM 137 mmol/L (136-145); UREA NITROGEN, BLOOD 16 mg/dL (7-18)
[2024-03-03] MEDS ORDERED: SODIUM POLYSTYRENE SULFONATE 15 G/60 ML BOTTLE ONE (19:27)
[2024-03-03] MEDS: SODIUM POLYSTYRENE SULFONATE 15 G/60 ML BOTTLE PO ONE (19:34)
[2024-03-03] MEDS ORDERED: BENZ-13 PO (19:42)
[2024-03-03] MEDS ORDERED: ALBU18HF2 INH (19:42)
[2024-03-03 20:18] VITALS: BP 145/85; O2SAT 99
== END 2024-03-03 20:14 | disposition home or self-care (01) ==
LOC: ER 17:17
DX: R05.9 Cough, unspecified (principal); E11.9 Type 2 diabetes mellitus without complications; G20.A1 Parkinson's disease without dyskinesia, without mention of fluctuations; I10 Essential (primary) hypertension; F02.80 Dementia in other diseases classified elsewhere, unspecified severity, without behavioral disturbance, psychotic disturbance, mood disturbance, and anxiety; I45.10 Unspecified right bundle-branch block; Z79.84 Long term (current) use of oral hypoglycemic drugs; Z79.899 Other long term (current) drug therapy; Z86.73 Personal history of transient ischemic attack (TIA), and cerebral infarction without residual deficits; Z20.822 Contact with and (suspected) exposure to COVID-19
CPT/HCPCS: 36415; 71045-TC; 80048-TC; 80076-TC; 83690-TC; 83880; 84484-TC; 85025-TC

== ENCOUNTER → 2024-03-13 | Emergency (ER) | payer MEDICARE, BC ==
[~2024-03-13] VITALS: Ht 162.6 cm; Wt 77.1 kg
[~2024-03-13] MED LIST changes: +ALBU18HF2 INH; +ASPI-1169 PO; +ATOR40TA GT; +BENZ-13 PO; +CLOP75TA15 PO; +DILT60TA3 PO; +HYDR-4075 PO
[2024-03-13 15:25] LABS: BASOPHILS # (AUTO) 0.1 K/uL (0.0-0.2); BASOPHILS % (AUTO) 0.8 % (0.0-2.0); EOSINOPHILS # (AUTO) 0.1 K/uL (0.0-0.7); EOSINOPHILS % (AUTO) 1.9 % (0.0-6.0); HEMATOCRIT 44 % (39-51); HEMOGLOBIN 15.2 g/dL (13.5-17.5); LYMPHOCYTES # (AUTO) 1.6 K/uL (0.8-4.8); LYMPHOCYTES % (AUTO) 21.5 % (20.0-44.0); MEAN CORPUSCULAR HEMOGLOBIN 31 PG (26.0-33.0); MEAN CORPUSCULAR HGB CONC 35 g/dl (31.0-36.0); MEAN CORPUSCULAR VOLUME 90 fL (80-96); MONOCYTES # (AUTO) 0.8 K/uL (0.1-1.30); MONOCYTES % (AUTO) 10.7 % (2.0-12.0); NEUTROPHILS # (AUTO) 4.9 K/uL (1.8-8.9); NEUTROPHILS % (AUTO) 65.1 % (43.0-81.0); PLATELET COUNT (AUTO) 277 K/uL (150-450); RED BLOOD CELL COUNT(AUTO) 4.89 MIL/uL (4.5-6.0); RED CELL DISTRIBUTION WIDTH 15.3 % (11.5-15.0); WHITE BLOOD COUNT (AUTO) 7.5 K/uL (4.3-11.0)
[2024-03-13 15:34] LABS: INR 0.98 (0.91-1.10); PARTIAL THROMBOPLASTIN TIME 25.9 SEC (24.3-34.3); PROTHROMBIN TIME 10.4 SECS (9.2-11.1)
[2024-03-13 15:42] LABS: CARBON DIOXIDE 28 mmol/L (21-32); CHLORIDE 101 mmol/L (98-107); CREATININE 1.1 mg/dL (0.6-1.3); GLUCOSE 152 mg/dL (74-106); POTASSIUM 3.9 mmol/L (3.5-5.1); SODIUM SERUM 136 mmol/L (136-145); UREA NITROGEN, BLOOD 16 mg/dL (7-18)
[2024-03-13 15:46] LABS: ALANINE AMINOTRANSFERASE 27 U/L (12-78); ALBUMIN 3.8 g/dL (3.4-5.0); ALCOHOL, BLOOD < 3 mg/dL (0-10); ALKALINE PHOSPHATASE 98 U/L (46-116); ASPARTATE AMINOTRANSFERASE 16 U/L (15-37); BILIRUBIN,DIRECT 0.1 mg/dL (0.0-0.2); BILIRUBIN,TOTAL 0.4 mg/dL (0.2-1.0); TOTAL PROTEIN, SERUM 7.8 g/dL (6.4-8.2)
[2024-03-13 15:51] LABS: SERUM AMMONIA 15 umol/L (11-32)
[2024-03-13 16:00] LABS: ACETAMINOPHEN <10 ug/ml (10-30); SALICYLATE 1.1 mg/dL (2.8-20.0)
[2024-03-13 18:00] VITALS: BP 160/87; TEMP 98.6; O2SAT 100
[2024-03-13 18:27] LABS: APPEARANCE,URINE CLEAR (CLEAR); BILIRUBIN,URINE NEGATIVE (NEGATIVE); BLOOD, URINE TRACE-INTA Ery/uL (NEGATIVE); COLOR,URINE YELLOW (YELLOW); KETONES,URINE NEGATIVE (NEGATIVE); LEUKOCYTE ESTERASE ,URINE NEGATIVE (NEGATIVE); NITRITE, URINE NEGATIVE (NEGATIVE); PROTEIN,URINE TRACE mg/dl (NEGATIVE); UGLUCOSE NEGATIVE (NEGATIVE); UROBILINOGEN,URINE 0.2 EU/dL (0.2)
[2024-03-13 19:05] LABS: AMPHETAMINE, URINE NEGATIVE (NEGATIVE); BARBITURATE, URINE NEGATIVE (NEGATIVE); BENZODIAZEPINE, URINE NEGATIVE (NEGATIVE); CANNABINOID, URINE NEGATIVE (NEGATIVE); COCCAINE, URINE NEGATIVE (NEGATIVE); OPIATE, URINE NEGATIVE (NEGATIVE); PHENCYCLIDINE SCREEN,URINE NEGATIVE (NEGATIVE)
[2024-03-13 19:10] LABS: ADD URINE CULTURE NO; BACTERIA,URINE None seen /HPF (None Seen); WBC,URINE 0-2 /HPF (0-3)
== END | disposition home or self-care (01) ==
LOC: ER 14:41
DX: G20.A1 Parkinson's disease without dyskinesia, without mention of fluctuations (principal); F02.80 Dementia in other diseases classified elsewhere, unspecified severity, without behavioral disturbance, psychotic disturbance, mood disturbance, and anxiety; R41.0 Disorientation, unspecified; I10 Essential (primary) hypertension; E11.9 Type 2 diabetes mellitus without complications; Z79.84 Long term (current) use of oral hypoglycemic drugs; Z79.899 Other long term (current) drug therapy; Z86.73 Personal history of transient ischemic attack (TIA), and cerebral infarction without residual deficits
CPT/HCPCS: 36415; 70450-TC; 71045-TC; 80048-TC; 80076-TC; 81001; 82140-TC; 82962-TC; 84439-TC; 84443-TC; 84484-TC; 85025-TC; 85730-TC; G0480

== ENCOUNTER 2024-03-17 14:34 | Inpatient (IN) | payer MEDICARE, BC ==
[~2024-03-17] VITALS: Ht 165.1 cm; Wt 75.7 kg
[~2024-03-17 14:34] MED LIST changes: -ASPI-1169 PO; -ATOR40TA GT; -CLOP75TA15 PO; -DILT60TA3 PO; -HYDR-4075 PO
[2024-03-17] MEDS: IV NS 0.9% 1,000 ML BAG IV ONE (15:10)
[2024-03-17 15:44] LABS: BASOPHILS % (AUTO) 0.6 % (0.0-2.0); EOSINOPHILS # (AUTO) 0.1 K/uL (0.0-0.7); HEMATOCRIT 43 % (39-51); HEMOGLOBIN 15.5 g/dL (13.5-17.5); LYMPHOCYTES # (AUTO) 1.7 K/uL (0.8-4.8); LYMPHOCYTES % (AUTO) 24.7 % (20.0-44.0); MEAN CORPUSCULAR HEMOGLOBIN 32 PG (26.0-33.0); MEAN CORPUSCULAR HGB CONC 36 g/dl (31.0-36.0); MEAN CORPUSCULAR VOLUME 89 fL (80-96); MONOCYTES # (AUTO) 0.6 K/uL (0.1-1.30); MONOCYTES % (AUTO) 8.9 % (2.0-12.0); NEUTROPHILS # (AUTO) 4.4 K/uL (1.8-8.9); NEUTROPHILS % (AUTO) 63.8 % (43.0-81.0); PLATELET COUNT (AUTO) 260 K/uL (150-450); RED BLOOD CELL COUNT(AUTO) 4.87 MIL/uL (4.5-6.0); WHITE BLOOD COUNT (AUTO) 6.9 K/uL (4.3-11.0)
[2024-03-17 15:54] LABS: MAGNESIUM 2.4 mg/dL (1.8-2.4)
[2024-03-17 16:07] LABS: CARBON DIOXIDE 33 mmol/L (21-32); CHLORIDE 99 mmol/L (98-107); CREATININE 1.1 mg/dL (0.6-1.3); GLUCOSE 147 mg/dL (74-106); POTASSIUM 3.7 mmol/L (3.5-5.1); SODIUM SERUM 137 mmol/L (136-145); UREA NITROGEN, BLOOD 16 mg/dL (7-18)
[2024-03-17] MEDS ORDERED: DILT60TA3 PO (16:09)
[2024-03-17] MEDS ORDERED: HYDR-4075 PO (16:09)
[2024-03-17 16:19] LABS: THYROID STIMULATING HORMONE 7.56 uIU/mL (0.358-3.74)
[2024-03-17 16:24] LABS: ALANINE AMINOTRANSFERASE 27 U/L (12-78); ALBUMIN 4.1 g/dL (3.4-5.0); ALKALINE PHOSPHATASE 112 U/L (46-116); ASPARTATE AMINOTRANSFERASE 17 U/L (15-37); BILIRUBIN,DIRECT 0.1 mg/dL (0.0-0.2); BILIRUBIN,TOTAL 0.4 mg/dL (0.2-1.0); NT-PRO BNP 113 pg/mL (0-125)
[2024-03-17] MEDS ORDERED: LABETALOL HCL IV 100MG VIAL ONE (17:58)
[2024-03-17] MEDS: LABETALOL HCL IV 100MG VIAL IV ONE (18:05)
[2024-03-17 21:00] VITALS: BP 150/80; TEMP 97.5; O2SAT 98
[2024-03-17] MEDS ORDERED: ACETAMINOPHEN 325 MG TABLET PO PRN (21:30)
[2024-03-17] MEDS: BLOOD SUGAR DIAGNOSTIC 1 EACH STRIP IN SCH (23:25)
[2024-03-17] MEDS: ATORVASTATIN 40 MG TABLET PO SCH (23:39)
[2024-03-18] VITALS: BP 145/84; TEMP 97.5; O2SAT 96
[2024-03-18 04:00] VITALS: BP 160/90; TEMP 97.7; O2SAT 95
[2024-03-18 06:32] LABS: BASOPHILS % (AUTO) 0.6 % (0.0-2.0); EOSINOPHILS # (AUTO) 0.1 K/uL (0.0-0.7); EOSINOPHILS % (AUTO) 1.8 % (0.0-6.0); HEMATOCRIT 42 % (39-51); HEMOGLOBIN 14.7 g/dL (13.5-17.5); LYMPHOCYTES # (AUTO) 2.1 K/uL (0.8-4.8); LYMPHOCYTES % (AUTO) 25.3 % (20.0-44.0); MEAN CORPUSCULAR HEMOGLOBIN 31 PG (26.0-33.0); MEAN CORPUSCULAR HGB CONC 35 g/dl (31.0-36.0); MEAN CORPUSCULAR VOLUME 89 fL (80-96); MONOCYTES # (AUTO) 0.8 K/uL (0.1-1.30); MONOCYTES % (AUTO) 9.6 % (2.0-12.0); NEUTROPHILS # (AUTO) 5.1 K/uL (1.8-8.9); NEUTROPHILS % (AUTO) 62.7 % (43.0-81.0); PLATELET COUNT (AUTO) 261 K/uL (150-450); RED BLOOD CELL COUNT(AUTO) 4.75 MIL/uL (4.5-6.0); RED CELL DISTRIBUTION WIDTH 15.2 % (11.5-15.0); WHITE BLOOD COUNT (AUTO) 8.2 K/uL (4.3-11.0)
[2024-03-18 06:34] LABS: CALCIUM, SERUM 8.4 mg/dL (8.5-10.1); POTASSIUM 3.4 mmol/L (3.5-5.1)
[2024-03-18 08:00] VITALS: BP 171/97; TEMP 98.1; O2SAT 97
[2024-03-18] MEDS: ASPIRIN 81 MG TAB.CHEW PO SCH (08:25)
[2024-03-18] MEDS: LINAGLIPTIN 5 MG TABLET PO SCH (08:25)
[2024-03-18] MEDS: PANTOPRAZOLE 40 MG VIAL IV SCH (08:25)
[2024-03-18] MEDS ORDERED: hydrALAZINE HCL 25 MG TABLET PO ONE (09:30)
[2024-03-18] MEDS: hydrALAZINE HCL 25 MG TABLET PO ONE (09:52)
[2024-03-18 12:00] VITALS: BP 179/82; TEMP 97.7; O2SAT 96
[2024-03-18] MEDS ORDERED: DEXTROSE 50%-WATER 50 ML DISP.SYRIN IV PRN (12:00)
[2024-03-18] MEDS: POTASSIUM CHLORIDE 20 MEQ TAB.PRT.SR PO SCH (12:11)
[2024-03-18] MEDS: BLOOD SUGAR DIAGNOSTIC 1 EACH STRIP IN SCH (12:11)
[2024-03-18] MEDS: INSULIN REGULAR, HUMAN 100 UNIT/ML 3 ML VIAL SQ PRN (12:13)
[2024-03-18 16:00] VITALS: BP 118/69; TEMP 97.5; O2SAT 98
[2024-03-18 20:00] VITALS: BP 125/70; TEMP 97.7; O2SAT 94
[2024-03-19] VITALS: BP 131/80; TEMP 98.4; O2SAT 94
[2024-03-19 04:00] VITALS: BP 125/81; TEMP 98.1; O2SAT 96
[2024-03-19 07:27] LABS: BASOPHILS # (AUTO) 0.1 K/uL (0.0-0.2); BASOPHILS % (AUTO) 0.8 % (0.0-2.0); EOSINOPHILS # (AUTO) 0.2 K/uL (0.0-0.7); EOSINOPHILS % (AUTO) 2.4 % (0.0-6.0); HEMATOCRIT 42 % (39-51); HEMOGLOBIN 14.2 g/dL (13.5-17.5); LYMPHOCYTES # (AUTO) 2.4 K/uL (0.8-4.8); LYMPHOCYTES % (AUTO) 26.7 % (20.0-44.0); MEAN CORPUSCULAR HEMOGLOBIN 31 PG (26.0-33.0); MEAN CORPUSCULAR HGB CONC 34 g/dl (31.0-36.0); MEAN CORPUSCULAR VOLUME 90 fL (80-96); MONOCYTES # (AUTO) 0.9 K/uL (0.1-1.30); NEUTROPHILS # (AUTO) 5.4 K/uL (1.8-8.9); NEUTROPHILS % (AUTO) 60.1 % (43.0-81.0); PLATELET COUNT (AUTO) 268 K/uL (150-450); RED BLOOD CELL COUNT(AUTO) 4.64 MIL/uL (4.5-6.0); RED CELL DISTRIBUTION WIDTH 14.8 % (11.5-15.0); WHITE BLOOD COUNT (AUTO) 8.9 K/uL (4.3-11.0)
[2024-03-19 07:42] LABS: CALCIUM, SERUM 8.2 mg/dL (8.5-10.1); CREATININE 1.1 mg/dL (0.6-1.3); POTASSIUM 3.3 mmol/L (3.5-5.1)
[2024-03-19 08:00] VITALS: BP 138/62; TEMP 98.1; O2SAT 97
[2024-03-19] MEDS: POTASSIUM CHLORIDE 20 MEQ TAB.PRT.SR PO SCH (10:41)
[2024-03-19] MEDS ORDERED: IOHEXOL-350 100 ML VIAL IV ONE (11:33)
[2024-03-19] MEDS ORDERED: IV NS 0.9% 250 ML IV ONE (11:34)
[2024-03-19] MEDS ORDERED: CT SWABBABLE VALVE TRANS SET 1 EA INFUS.SET MC ONE (11:34)
[2024-03-19] MEDS: CLOPIDOGREL BISULFATE 300 MG TABLET PO ONE (12:40)
[2024-03-19 16:00] VITALS: BP 150/68; TEMP 98.4; O2SAT 95
[2024-03-19] MEDS ORDERED: MAGNESIUM HYDROXIDE 30 ML UDC PO PRN (16:30)
[2024-03-19] MEDS: DOCUSATE SODIUM 250 MG CAPSULE PO SCH (17:06)
[2024-03-19 20:00] VITALS: BP 163/89; TEMP 98.1; O2SAT 96
[2024-03-19 20:35] VITALS: BP 163/89; TEMP 98.1; O2SAT 96
[2024-03-20 06:58] LABS: BASOPHILS % (AUTO) 0.5 % (0.0-2.0); EOSINOPHILS # (AUTO) 0.3 K/uL (0.0-0.7); EOSINOPHILS % (AUTO) 3.2 % (0.0-6.0); HEMATOCRIT 43 % (39-51); HEMOGLOBIN 14.4 g/dL (13.5-17.5); LYMPHOCYTES # (AUTO) 1.8 K/uL (0.8-4.8); LYMPHOCYTES % (AUTO) 22.3 % (20.0-44.0); MEAN CORPUSCULAR HEMOGLOBIN 30 PG (26.0-33.0); MEAN CORPUSCULAR HGB CONC 34 g/dl (31.0-36.0); MEAN CORPUSCULAR VOLUME 90 fL (80-96); MONOCYTES # (AUTO) 0.8 K/uL (0.1-1.30); MONOCYTES % (AUTO) 10.4 % (2.0-12.0); NEUTROPHILS # (AUTO) 5.2 K/uL (1.8-8.9); NEUTROPHILS % (AUTO) 63.6 % (43.0-81.0); PLATELET COUNT (AUTO) 246 K/uL (150-450); RED BLOOD CELL COUNT(AUTO) 4.75 MIL/uL (4.5-6.0); WHITE BLOOD COUNT (AUTO) 8.2 K/uL (4.3-11.0)
[2024-03-20 07:59] LABS: CALCIUM, SERUM 9.1 mg/dL (8.5-10.1); POTASSIUM 3.6 mmol/L (3.5-5.1)
[2024-03-20 08:00] VITALS: BP 173/86; TEMP 97.9; O2SAT 96
[2024-03-20] MEDS: CLOPIDOGREL BISULFATE 75 MG TABLET PO SCH (08:12)
[2024-03-20] MEDS: PANTOPRAZOLE 40 MG TABLET.DR PO SCH (08:12)
[2024-03-20] MEDS ORDERED: Z GUARD REMEDY 4 OZ OINT TP PRN (11:30)
[2024-03-20] MEDS: Z GUARD REMEDY 4 OZ OINT TP SCH (11:34)
[2024-03-20 16:00] VITALS: BP 109/71; TEMP 98.1; O2SAT 96
[2024-03-21 06:08] LABS: FOLIC ACID 17.3 ng/mL (>3.0)
[2024-03-21 08:00] VITALS: BP 164/100; TEMP 98.2; O2SAT 94
[2024-03-21 16:00] VITALS: BP 149/79; TEMP 97.9; O2SAT 96
[2024-03-21 20:00] VITALS: BP 124/87; TEMP 98.6; O2SAT 95
[2024-03-22 08:00] VITALS: BP 179/107; TEMP 98.1; O2SAT 96
[2024-03-22] MEDS ORDERED: CLOP75TA15 PO (11:31)
[2024-03-22] MEDS ORDERED: ASPI-1169 PO (11:31)
[2024-03-22] MEDS ORDERED: ATOR40TA GT (11:31)
[2024-03-22] MEDS: DILTIAZEM HCL 30 MG TABLET PO SCH (13:00)
[2024-03-22 16:17] VITALS: BP 161/90; TEMP 98.2; O2SAT 94
[2024-03-22 17:52] VITALS: BP 169/90
[2024-03-22] MEDS: hydrALAZINE HCL 10 MG TABLET PO PRN (17:52)
[2024-03-22] MEDS ORDERED: INSULIN GLARGINE, 100 UNIT/ML CARTRIDGE SQ SCH (22:00)
== END 2024-03-22 18:27 | disposition home health service (06) | DRG 67 ==
LOC: ER 14:39 → MED 21:12 → TELE 22:53 → MED 03-19 13:01
PROVIDERS: ATTEND Nurse Practitioner Acute Care
DX: I65.22 Occlusion and stenosis of left carotid artery (principal); G93.41 Metabolic encephalopathy; I16.0 Hypertensive urgency; F01.50 Vascular dementia, unspecified severity, without behavioral disturbance, psychotic disturbance, mood disturbance, and anxiety; E03.8 Other specified hypothyroidism; I10 Essential (primary) hypertension; E11.9 Type 2 diabetes mellitus without complications; G20.A1 Parkinson's disease without dyskinesia, without mention of fluctuations; Z79.4 Long term (current) use of insulin; Z79.84 Long term (current) use of oral hypoglycemic drugs; Z86.73 Personal history of transient ischemic attack (TIA), and cerebral infarction without residual deficits
CPT/HCPCS: 36415; 70450-TC; 70496-TC; 70498-TC; 71045-TC; 80048-TC; 80061-TC; 80076-TC; 82607-TC; 82962-TC; 83735-TC; 83880; 83921; 84425; 84439-TC; 84443-TC; 84484-TC; 85025-TC; 93307-TC; 97110-TC; 97112-TC; 97116-TC; 97530-TC; G0378; J1815; J2470; J3490; J7050; Q9967

== ENCOUNTER 2024-05-09 16:41 | Emergency (ER) | payer MEDICARE, BC ==
[~2024-05-09] VITALS: Ht 180.3 cm; Wt 81.6 kg
[~2024-05-09 16:41] MED LIST changes: -ALBU18HF2 INH; +ASPI-1169 PO; +ATOR40TA GT; -BENZ-13 PO; -CEFD300C3 PO; -CIPR-262 PO; +CLOP75TA15 PO; +DILT60TA3 PO; +HYDR-4075 PO; -METR500T PO; -NA P133E8 RC; -OLME1TAB90 PO; -POLY17PO4 PO
[2024-05-09 17:27] LABS: BASOPHILS % (AUTO) 0.4 % (0.0-2.0); EOSINOPHILS % (AUTO) 0.2 % (0.0-6.0); HEMATOCRIT 48 % (39-51); HEMOGLOBIN 16.3 g/dL (13.5-17.5); LYMPHOCYTES # (AUTO) 0.9 K/uL (0.8-4.8); LYMPHOCYTES % (AUTO) 9.3 % (20.0-44.0); MEAN CORPUSCULAR HEMOGLOBIN 30 PG (26.0-33.0); MEAN CORPUSCULAR HGB CONC 34 g/dl (31.0-36.0); MEAN CORPUSCULAR VOLUME 89 fL (80-96); MONOCYTES # (AUTO) 0.9 K/uL (0.1-1.30); MONOCYTES % (AUTO) 8.9 % (2.0-12.0); NEUTROPHILS # (AUTO) 7.8 K/uL (1.8-8.9); NEUTROPHILS % (AUTO) 81.2 % (43.0-81.0); PLATELET COUNT (AUTO) 206 K/uL (150-450); RED BLOOD CELL COUNT(AUTO) 5.43 MIL/uL (4.5-6.0); RED CELL DISTRIBUTION WIDTH 14.8 % (11.5-15.0); WHITE BLOOD COUNT (AUTO) 9.6 K/uL (4.3-11.0)
[2024-05-09] MEDS ORDERED: hydrALAZINE HCL IV 20 MG VIAL ONE (17:38)
[2024-05-09 17:47] LABS: CALCIUM, SERUM 9.1 mg/dL (8.5-10.1); CARBON DIOXIDE 29 mmol/L (21-32); CHLORIDE 100 mmol/L (98-107); CREATININE 1.1 mg/dL (0.6-1.3); GLUCOSE 170 mg/dL (74-106); POTASSIUM 3.7 mmol/L (3.5-5.1); SODIUM SERUM 135 mmol/L (136-145); UREA NITROGEN, BLOOD 18 mg/dL (7-18)
[2024-05-09] MEDS: hydrALAZINE HCL IV 20 MG VIAL IV ONE (17:52)
[2024-05-09] MEDS: CLINDAMYCIN IV RTU IN D5W 900 MG/50 ML PIGGYBACK IV ONE (18:26)
[2024-05-09 22:48] VITALS: BP 144/89; TEMP 98.5; O2SAT 96
== END 2024-05-09 22:48 | disposition home or self-care (01) ==
LOC: ER 16:54
DX: R53.1 Weakness (principal); E11.9 Type 2 diabetes mellitus without complications; F02.80 Dementia in other diseases classified elsewhere, unspecified severity, without behavioral disturbance, psychotic disturbance, mood disturbance, and anxiety; G20.A1 Parkinson's disease without dyskinesia, without mention of fluctuations; I10 Essential (primary) hypertension; Z91.048 Other nonmedicinal substance allergy status; Z79.82 Long term (current) use of aspirin; Z79.84 Long term (current) use of oral hypoglycemic drugs; Z79.02 Long term (current) use of antithrombotics/antiplatelets; Z79.899 Other long term (current) drug therapy
CPT/HCPCS: 99285; 96365; 70450; 71045; 96375; 93005; 85025; 80048; 36415; 84484; J0360; J3490

== ENCOUNTER 2024-05-26 10:48 | Inpatient (IN) | payer MEDICARE, BC ==
[~2024-05-26] VITALS: Ht 172.7 cm; Wt 77.1 kg
[2024-05-26 11:54] LABS: BASOPHILS % (AUTO) 0.3 % (0.0-2.0); EOSINOPHILS % (AUTO) 0.1 % (0.0-6.0); HEMATOCRIT 48 % (39-51); HEMOGLOBIN 15.7 g/dL (13.5-17.5); LYMPHOCYTES # (AUTO) 0.7 K/uL (0.8-4.8); LYMPHOCYTES % (AUTO) 9.2 % (20.0-44.0); MEAN CORPUSCULAR HEMOGLOBIN 29 PG (26.0-33.0); MEAN CORPUSCULAR HGB CONC 33 g/dl (31.0-36.0); MEAN CORPUSCULAR VOLUME 89 fL (80-96); MONOCYTES # (AUTO) 0.7 K/uL (0.1-1.30); MONOCYTES % (AUTO) 9.8 % (2.0-12.0); NEUTROPHILS % (AUTO) 80.6 % (43.0-81.0); PLATELET COUNT (AUTO) 282 K/uL (150-450); RED BLOOD CELL COUNT(AUTO) 5.37 MIL/uL (4.5-6.0); RED CELL DISTRIBUTION WIDTH 14.6 % (11.5-15.0); WHITE BLOOD COUNT (AUTO) 7.4 K/uL (4.3-11.0)
[2024-05-26 12:10] LABS: ALANINE AMINOTRANSFERASE 23 U/L (12-78); ALBUMIN 3.6 g/dL (3.4-5.0); ALKALINE PHOSPHATASE 104 U/L (46-116); ASPARTATE AMINOTRANSFERASE 20 U/L (15-37); BILIRUBIN,DIRECT 0.2 mg/dL (0.0-0.2); BILIRUBIN,TOTAL 0.7 mg/dL (0.2-1.0); CALCIUM, SERUM 9.1 mg/dL (8.5-10.1); CARBON DIOXIDE 24 mmol/L (21-32); CHLORIDE 102 mmol/L (98-107); GLUCOSE 144 mg/dL (74-106); POTASSIUM 3.6 mmol/L (3.5-5.1); SODIUM SERUM 136 mmol/L (136-145); TOTAL PROTEIN, SERUM 7.8 g/dL (6.4-8.2); UREA NITROGEN, BLOOD 16 mg/dL (7-18)
[2024-05-26 12:13] LABS: INR 1.04 (0.91-1.10); PARTIAL THROMBOPLASTIN TIME 28.1 SEC (24.3-34.3)
[2024-05-26 12:19] LABS: APPEARANCE,URINE CLEAR (CLEAR); BILIRUBIN,URINE NEGATIVE (NEGATIVE); BLOOD, URINE TRACE-INTA Ery/uL (NEGATIVE); COLOR,URINE YELLOW (YELLOW); KETONES,URINE 1+ mg/dL (NEGATIVE); LEUKOCYTE ESTERASE ,URINE NEGATIVE (NEGATIVE); NITRITE, URINE NEGATIVE (NEGATIVE); PROTEIN,URINE 1+ mg/dl (NEGATIVE); UGLUCOSE NEGATIVE (NEGATIVE); UROBILINOGEN,URINE 0.2 EU/dL (0.2)
[2024-05-26 12:23] LABS: LACTIC ACID 1.5 mmol/L (0.4-2.0)
[2024-05-26] MEDS ORDERED: LEVO50TA8 PO (13:14)
[2024-05-26 13:21] LABS: ADD URINE CULTURE YES; BACTERIA,URINE 1+ /HPF (None Seen); SQUAMOUS EPITHELIAL CELL,UR 0-2 /HPF (None Seen); WBC,URINE NONE SEEN /HPF (0-3)
[2024-05-26] MEDS ORDERED: MAG HYDROX/AL HYDROX/SIMETH 30 ML UDC PO PRN (15:30)
[2024-05-26] MEDS ORDERED: Z GUARD REMEDY 4 OZ OINT TP PRN (15:30)
[2024-05-26] MEDS ORDERED: ZOLPIDEM TARTRATE 5 MG TABLET PO PRN (15:30)
[2024-05-26] MEDS ORDERED: ONDANSETRON HCL/PF 4 MG/2 ML VIAL IVP PRN (15:30)
[2024-05-26] MEDS: ENOXAPARIN SODIUM 40 MG/0.4 ML DISP.SYRIN SQ SCH (16:18)
[2024-05-26] MEDS: IV 1/2NS 1000 ML 1,000 ML IV PRN (17:41)
[2024-05-26 20:00] VITALS: BP 157/83; TEMP 100.4; O2SAT 96
[2024-05-26] MEDS: ACETAMINOPHEN 325 MG TABLET PO PRN (20:47)
[2024-05-26] MEDS: DOXYCYCLINE HYCLATE (100 MG) 100 MG TABLET PO SCH (20:47)
[2024-05-27 04:00] VITALS: BP 144/70; TEMP 98.2; O2SAT 95
[2024-05-27 08:00] VITALS: BP 124/75; TEMP 98.2; O2SAT 94
[2024-05-27 08:31] LABS: CALCIUM, SERUM 8.3 mg/dL (8.5-10.1); CREATININE 0.9 mg/dL (0.6-1.3); MAGNESIUM 2.4 mg/dL (1.8-2.4); PHOSPHORUS 2.7 mg/dL (2.5-4.9); POTASSIUM 3.7 mmol/L (3.5-5.1)
[2024-05-27 08:34] LABS: BASOPHILS % (AUTO) 0.6 % (0.0-2.0); EOSINOPHILS % (AUTO) 0.3 % (0.0-6.0); HEMATOCRIT 45 % (39-51); HEMOGLOBIN 14.9 g/dL (13.5-17.5); LYMPHOCYTES # (AUTO) 1.2 K/uL (0.8-4.8); LYMPHOCYTES % (AUTO) 19.1 % (20.0-44.0); MEAN CORPUSCULAR HEMOGLOBIN 29 PG (26.0-33.0); MEAN CORPUSCULAR HGB CONC 34 g/dl (31.0-36.0); MEAN CORPUSCULAR VOLUME 88 fL (80-96); MONOCYTES % (AUTO) 16.1 % (2.0-12.0); NEUTROPHILS % (AUTO) 63.9 % (43.0-81.0); PLATELET COUNT (AUTO) 235 K/uL (150-450); RED BLOOD CELL COUNT(AUTO) 5.09 MIL/uL (4.5-6.0); RED CELL DISTRIBUTION WIDTH 14.1 % (11.5-15.0); WHITE BLOOD COUNT (AUTO) 6.3 K/uL (4.3-11.0)
[2024-05-27 08:42] LABS: THYROID STIMULATING HORMONE 1.32 uIU/mL (0.358-3.74)
[2024-05-27] MEDS: PANTOPRAZOLE 40 MG TABLET.DR PO SCH (10:09)
[2024-05-27 13:13] LABS: EOSINOPHILS % (MANUAL) 2 % (0-4); LYMPHOCYTES % (MANUAL) 17 % (16-48); MONOCYTES % (MANUAL) 10 % (0-11.0); NEUTROPHILS % (MANUAL) 71 (42-76)
[2024-05-27 13:14] LABS: ANISOCYTOSIS 1+; PLATELET ESTIMATE ADEQUATE
[2024-05-27 16:00] VITALS: BP 159/86; TEMP 98.8; O2SAT 95
[2024-05-28] MEDS ORDERED: DOXY100T2 PO (12:48)
[2024-05-28] MEDS ORDERED: NIRM1TAB8 PO (13:06)
[2024-05-28 16:00] VITALS: BP 142/74; TEMP 98.6; O2SAT 99
[2024-05-28 20:00] VITALS: BP 145/73; TEMP 98.9; O2SAT 92
[2024-05-28] MEDS: MAGNESIUM HYDROXIDE 30 ML UDC PO PRN (21:53)
[2024-05-29 04:00] VITALS: BP 156/93; TEMP 98.2; O2SAT 93
[2024-05-29 08:43] VITALS: BP 168/77
[2024-05-29] MEDS: hydrALAZINE HCL IV 20 MG VIAL IV PRN (08:43)
== END 2024-05-29 12:30 | disposition home health service (06) | DRG 178 ==
LOC: ER 10:59 → MEDSG1 14:28
DX: U07.1 COVID-19 (principal); I69.351 Hemiplegia and hemiparesis following cerebral infarction affecting right dominant side; E03.8 Other specified hypothyroidism; G20.A1 Parkinson's disease without dyskinesia, without mention of fluctuations; F01.50 Vascular dementia, unspecified severity, without behavioral disturbance, psychotic disturbance, mood disturbance, and anxiety; I10 Essential (primary) hypertension; Z79.84 Long term (current) use of oral hypoglycemic drugs; Z79.4 Long term (current) use of insulin; E11.9 Type 2 diabetes mellitus without complications; R53.1 Weakness; I77.89 Other specified disorders of arteries and arterioles
CPT/HCPCS: 36415; 71045-TC; 80048-TC; 80061-TC; 80076-TC; 81001; 83605-TC; 83735-TC; 84100-TC; 84443-TC; 84484-TC; 85025-TC; 85730-TC; 86140-TC; 87040-TC; 87086-TC; 97110-TC; 97530-TC; A4223; G0378; J0360; J1650; J3490

== ENCOUNTER 2024-09-30 15:26 | Inpatient (IN) | payer MEDICARE, BC ==
[~2024-09-30] VITALS: Ht 165.1 cm; Wt 81.6 kg
[~2024-09-30 15:26] MED LIST changes: -ASPI-1169 PO; -ATOR40TA GT; -CLOP75TA15 PO; +DOXY100T2 PO; +LEVO50TA8 PO; +NIRM1TAB8 PO
[2024-09-30] MEDS ORDERED: MECLIZINE HCL 25 MG TABLET ONE (16:06)
[2024-09-30] MEDS: MECLIZINE HCL 25 MG TABLET PO ONE (16:12)
[2024-09-30 16:23] LABS: CALCIUM, SERUM 9.2 mg/dL (8.5-10.1); CREATININE 1.0 mg/dL (0.6-1.3); SODIUM SERUM 139 mmol/L (136-145); UREA NITROGEN, BLOOD 18 mg/dL (7-18)
[2024-09-30] MEDS ORDERED: CLOP75TA15 PO (16:30)
[2024-09-30 16:36] LABS: ASPARTATE AMINOTRANSFERASE 8 U/L (15-37); NT-PRO BNP 73 pg/mL (0-125); TOTAL PROTEIN, SERUM 7.5 g/dL (6.4-8.2)
[2024-09-30 16:39] LABS: PLATELET COUNT (AUTO) 143 K/uL (150-450); RED BLOOD CELL COUNT(AUTO) 3.46 MIL/uL (4.5-6.0); RED CELL DISTRIBUTION WIDTH 14.8 % (11.5-15.0); WHITE BLOOD COUNT (AUTO) 5.1 K/uL (4.3-11.0)
[2024-09-30] MEDS ORDERED: ACETAMINOPHEN 325 MG TABLET PO PRN (20:00)
[2024-09-30] MEDS ORDERED: ONDANSETRON HCL/PF 4 MG/2 ML VIAL IVP PRN (20:00)
[2024-09-30] MEDS ORDERED: MAG HYDROX/AL HYDROX/SIMETH 30 ML UDC PO PRN (20:00)
[2024-09-30] MEDS ORDERED: DEXTROSE 50%-WATER 50 ML DISP.SYRIN IV PRN (20:30)
[2024-09-30] MEDS: IV NS 0.9% 1,000 ML IV PRN (20:37)
[2024-09-30] MEDS: MECLIZINE HCL 25 MG TABLET PO SCH (21:41)
[2024-09-30 22:00] VITALS: BP 184/80; TEMP 98.2; O2SAT 94
[2024-09-30] MEDS ORDERED: INSULIN GLARGINE,BASAGLAR 100 UNIT/ML INSULN.PEN SQ SCH (22:00)
[2024-09-30] MEDS: BLOOD SUGAR DIAGNOSTIC 1 EACH STRIP IN SCH (22:12)
[2024-09-30] MEDS: DILTIAZEM HCL 30 MG TABLET PO SCH (22:49)
[2024-09-30] MEDS: INSULIN GLARGINE, 100 UNIT/ML CARTRIDGE SQ SCH (23:28)
[2024-09-30] MEDS: INSULIN REGULAR, HUMAN 100 UNIT/ML 3 ML VIAL SQ PRN (23:32)
[2024-10-01] VITALS (8 sets, daily range): BP systolic 121–168; BP diastolic 55–79; TEMP 97.5–98.1; O2SAT 94–100
[2024-10-01] MEDS ORDERED: PANTOPRAZOLE 40 MG TABLET.DR PO SCH (07:30)
[2024-10-01 07:36] LABS: ASPARTATE AMINOTRANSFERASE 11 U/L (15-37); CALCIUM, SERUM 8.6 mg/dL (8.5-10.1); CREATININE 0.8 mg/dL (0.6-1.3); PHOSPHORUS 3.6 mg/dL (2.5-4.9); SODIUM SERUM 144 mmol/L (136-145); TOTAL PROTEIN, SERUM 6.6 g/dL (6.4-8.2); UREA NITROGEN, BLOOD 19 mg/dL (7-18)
[2024-10-01 07:41] LABS: PLATELET COUNT (AUTO) 296 K/uL (150-450); RED BLOOD CELL COUNT(AUTO) 5.09 MIL/uL (4.5-6.0); RED CELL DISTRIBUTION WIDTH 14.7 % (11.5-15.0); WHITE BLOOD COUNT (AUTO) 8.1 K/uL (4.3-11.0)
[2024-10-01 07:47] LABS: IRON, SERUM 51 ug/dl (50-175)
[2024-10-01 08:04] LABS: LDL 130 mg/dL (0-99)
[2024-10-01] MEDS: CLOPIDOGREL BISULFATE 75 MG TABLET PO SCH (09:01)
[2024-10-01] MEDS: PANTOPRAZOLE 40 MG TABLET.DR PO SCH (09:01)
[2024-10-01] MEDS: LEVOTHYROXINE SODIUM 50 MCG TABLET PO SCH (09:02)
[2024-10-01] MEDS: LINAGLIPTIN 5 MG TABLET PO SCH (09:02)
[2024-10-01] MEDS: POTASSIUM CHLORIDE 20 MEQ TAB.PRT.SR PO ONE (11:59)
[2024-10-01] MEDS: DILTIAZEM HCL 30 MG TABLET PO SCH (13:40)
[2024-10-01] MEDS: MAGNESIUM HYDROXIDE 30 ML UDC PO PRN (20:38)
[2024-10-02] VITALS: BP 116/66; TEMP 98.1; O2SAT 95
[2024-10-02 04:00] VITALS: BP 124/61; TEMP 97.9; O2SAT 94
[2024-10-02 07:30] VITALS: BP 136/68; TEMP 98.2; O2SAT 95
[2024-10-02 08:00] VITALS: BP 136/68; TEMP 98.2; O2SAT 95
[2024-10-02 12:00] VITALS: BP 135/65; TEMP 98; O2SAT 94
[2024-10-02] MEDS: CLONIDINE HCL 0.1 MG TABLET PO PRN (15:38)
[2024-10-02 16:00] VITALS: BP 165/88; TEMP 98; O2SAT 95
[2024-10-03 08:07] LABS: FOLIC ACID 16.5 ng/mL (>3.0)
== END 2024-10-02 18:53 | disposition home health service (06) | DRG 149 ==
LOC: ER 15:31 → TELE1 18:21
PROVIDERS: ADMIT Nurse Practitioner Family; ATTEND Nurse Practitioner Acute Care
DX: H81.13 Benign paroxysmal vertigo, bilateral (principal); I50.32 Chronic diastolic (congestive) heart failure; I16.0 Hypertensive urgency; I10 Essential (primary) hypertension; I25.10 Atherosclerotic heart disease of native coronary artery without angina pectoris; D64.9 Anemia, unspecified; F02.80 Dementia in other diseases classified elsewhere, unspecified severity, without behavioral disturbance, psychotic disturbance, mood disturbance, and anxiety; E03.9 Hypothyroidism, unspecified; E11.9 Type 2 diabetes mellitus without complications; E66.9 Obesity, unspecified; G20.A1 Parkinson's disease without dyskinesia, without mention of fluctuations; I11.0 Hypertensive heart disease with heart failure; Z79.4 Long term (current) use of insulin; Z86.73 Personal history of transient ischemic attack (TIA), and cerebral infarction without residual deficits; Z20.822 Contact with and (suspected) exposure to COVID-19; R53.1 Weakness; Z68.30 Body mass index [BMI] 30.0-30.9, adult; R26.9 Unspecified abnormalities of gait and mobility; F01.50 Vascular dementia, unspecified severity, without behavioral disturbance, psychotic disturbance, mood disturbance, and anxiety; Z79.02 Long term (current) use of antithrombotics/antiplatelets; Z79.84 Long term (current) use of oral hypoglycemic drugs; Z79.899 Other long term (current) drug therapy
CPT/HCPCS: 36415; 70450-TC; 71045-TC; 80048-TC; 80061-TC; 80076-TC; 82607-TC; 82962-TC; 83540-TC; 83735-TC; 83880; 83921; 84100-TC; 84425; 84443-TC; 84484-TC; 85025-TC; 93307-TC; A4223; G0378; J1815; J7030; J8597

== ENCOUNTER 2024-10-25 15:29 | Emergency (ER) | payer MEDICARE, BC ==
[~2024-10-25] VITALS: Ht 162.6 cm; Wt 54.0 kg
[~2024-10-25 15:29] MED LIST changes: +CLOP75TA15 PO; -DOXY100T2 PO; -NIRM1TAB8 PO
[2024-10-25 16:45] LABS: PLATELET COUNT (AUTO) 250 K/uL (150-450); RED BLOOD CELL COUNT(AUTO) 5.31 MIL/uL (4.5-6.0); RED CELL DISTRIBUTION WIDTH 15.1 % (11.5-15.0); WHITE BLOOD COUNT (AUTO) 7.5 K/uL (4.3-11.0)
[2024-10-25 16:54] LABS: CALCIUM, SERUM 8.8 mg/dL (8.5-10.1); CREATININE 1.0 mg/dL (0.6-1.3); SODIUM SERUM 135 mmol/L (136-145); UREA NITROGEN, BLOOD 17 mg/dL (7-18)
[2024-10-25 17:07] LABS: ASPARTATE AMINOTRANSFERASE 17 U/L (15-37); NT-PRO BNP 54 pg/mL (0-125); TOTAL PROTEIN, SERUM 7.9 g/dL (6.4-8.2)
[2024-10-25 18:46] VITALS: BP 128/78; TEMP 98.3; O2SAT 99
== END 2024-10-25 18:47 | disposition home or self-care (01) ==
LOC: ER 15:36
DX: R05.9 Cough, unspecified (principal); E11.9 Type 2 diabetes mellitus without complications; G20.A1 Parkinson's disease without dyskinesia, without mention of fluctuations; F02.80 Dementia in other diseases classified elsewhere, unspecified severity, without behavioral disturbance, psychotic disturbance, mood disturbance, and anxiety; I10 Essential (primary) hypertension; Z79.02 Long term (current) use of antithrombotics/antiplatelets; Z79.890 Hormone replacement therapy; Z86.73 Personal history of transient ischemic attack (TIA), and cerebral infarction without residual deficits; Z87.448 Personal history of other diseases of urinary system; Z87.438 Personal history of other diseases of male genital organs; Z79.4 Long term (current) use of insulin
CPT/HCPCS: 36415; 71045-TC; 80048-TC; 80076-TC; 83880; 84484-TC; 85025-TC

== ENCOUNTER 2024-11-27 14:35 | Inpatient (IN) | payer MEDICARE, BC ==
[~2024-11-27] VITALS: Ht 162.6 cm; Wt 79.4 kg
[2024-11-27 15:38] LABS: PLATELET COUNT (AUTO) 285 K/uL (150-450); RED BLOOD CELL COUNT(AUTO) 5.11 MIL/uL (4.5-6.0); RED CELL DISTRIBUTION WIDTH 16.6 % (11.5-15.0); WHITE BLOOD COUNT (AUTO) 9.9 K/uL (4.3-11.0)
[2024-11-27 15:48] LABS: CALCIUM, SERUM 8.5 mg/dL (8.5-10.1); CREATININE 1.2 mg/dL (0.6-1.3); SODIUM SERUM 137.0 mmol/L (136-145); UREA NITROGEN, BLOOD 20.0 mg/dL (7-18)
[2024-11-27 15:51] LABS: APPEARANCE,URINE CLEAR (CLEAR); BLOOD, URINE 1+ Ery/uL (NEGATIVE); LEUKOCYTE ESTERASE ,URINE 1+ (NEGATIVE); NITRITE, URINE NEGATIVE (NEGATIVE); UGLUCOSE 1+ mg/dL (NEGATIVE)
[2024-11-27] MEDS ORDERED: Trelegy Ellipta IH (15:51)
[2024-11-27] MEDS ORDERED: ASPI-1420 PO (15:51)
[2024-11-27] MEDS ORDERED: HYDR-4076 PO (15:51)
[2024-11-27] MEDS ORDERED: LINA145C PO (15:51)
[2024-11-27 15:53] LABS: ASPARTATE AMINOTRANSFERASE 11.0 U/L (15-37); TOTAL PROTEIN, SERUM 7.8 g/dL (6.4-8.2)
[2024-11-27 15:54] LABS: INR 0.95 (0.91-1.10)
[2024-11-27 15:55] LABS: LACTIC ACID 1.1 mmol/L (0.4-2.0)
[2024-11-27 16:12] LABS: ADD URINE CULTURE YES
[2024-11-27 16:13] LABS: SQUAMOUS EPITHELIAL CELL,UR Rare /HPF (None Seen)
[2024-11-27] MEDS ORDERED: Z GUARD REMEDY 4 OZ OINT TP PRN (17:30)
[2024-11-27] MEDS ORDERED: MAG HYDROX/AL HYDROX/SIMETH 30 ML UDC PO PRN (17:30)
[2024-11-27] MEDS ORDERED: DEXTROSE 50%-WATER 50 ML DISP.SYRIN IV PRN (17:30)
[2024-11-27] MEDS ORDERED: ONDANSETRON HCL/PF 4 MG/2 ML VIAL IVP PRN (17:30)
[2024-11-27] MEDS ORDERED: MAGNESIUM HYDROXIDE 30 ML UDC PO PRN (17:30)
[2024-11-27] MEDS: BLOOD SUGAR DIAGNOSTIC 1 EACH STRIP VI SCH (18:26)
[2024-11-27] MEDS: INSULIN REGULAR, HUMAN 100 UNIT/ML 3 ML VIAL SQ PRN (18:31)
[2024-11-27 20:00] VITALS: BP_SYST 118; BP_SYST 188; BP_DIAS 97; TEMP 97.9; O2SAT 95
[2024-11-27 20:06] VITALS: BP 168/95
[2024-11-27] MEDS: INSULIN GLARGINE, 100 UNIT/ML CARTRIDGE SQ SCH (21:51)
[2024-11-27 22:33] LABS: HIV-1/2 ANTIBODY NON REACTIVE (NONREACTIVE)
[2024-11-27 23:16] VITALS: BP 162/91; O2SAT 0
[2024-11-28] MEDS: ACETAMINOPHEN 325 MG TABLET PO PRN (00:25)
[2024-11-28 01:41] VITALS: BP 161/91
[2024-11-28 06:06] VITALS: BP 151/89
[2024-11-28 07:12] LABS: RAPID PLASMA REAGIN QUAL. Non Reactive (Non Reactive)
[2024-11-28 07:21] LABS: PLATELET COUNT (AUTO) 261 K/uL (150-450); RED BLOOD CELL COUNT(AUTO) 4.80 MIL/uL (4.5-6.0); RED CELL DISTRIBUTION WIDTH 16.5 % (11.5-15.0); WHITE BLOOD COUNT (AUTO) 9.1 K/uL (4.3-11.0)
[2024-11-28 07:45] LABS: CALCIUM, SERUM 8.6 mg/dL (8.5-10.1); CREATININE 0.9 mg/dL (0.6-1.3); PHOSPHORUS 2.9 mg/dL (2.5-4.9); SODIUM SERUM 144.0 mmol/L (136-145); UREA NITROGEN, BLOOD 19.0 mg/dL (7-18)
[2024-11-28 08:00] VITALS: BP 134/95; TEMP 98.4; O2SAT 96
[2024-11-28] MEDS: CLOPIDOGREL BISULFATE 75 MG TABLET PO SCH (08:14)
[2024-11-28] MEDS: LEVOTHYROXINE SODIUM 50 MCG TABLET PO SCH (08:14)
[2024-11-28] MEDS: ASPIRIN EC 81 MG TABLET.DR PO SCH (08:14)
[2024-11-28] MEDS: DILTIAZEM HCL 30 MG TABLET PO SCH (08:16)
[2024-11-28] MEDS ORDERED: Medication Not On Formulary EA ([Trelegy Ellipta] 1 PUFF) IH SCH (09:00)
[2024-11-28] MEDS ORDERED: CLOBETASOL 0.05% CREAM 15 GM TUBE TP SCH (11:00)
[2024-11-28 11:07] LABS: *ANA ANTI-CENTROMERE B AB <0.2 AI (0.0-0.9); *ANA ANTI-DNA(DS) AB, QN 1 IU/mL (0-9); *ANA ANTI-JO-1 <0.2 AI (0.0-0.9); *ANA ANTICHROMATIN ANTIBODY <0.2 AI (0.0-0.9); *ANA RNP ANTIBODIES 3.1 AI (0.0-0.9); *ANA SJOGREN'S ANTI-SS-A <0.2 AI (0.0-0.9); *ANA SJOGREN'S ANTI-SS-B <0.2 AI (0.0-0.9); *ANAANTI-SCLERODERMA-70 AB <0.2 AI (0.0-0.9); *ANASMITH AB <0.2 AI (0.0-0.9)
[2024-11-28] MEDS: CLOBETASOL 0.05% OINT 30 GM TUBE TP SCH (12:44)
[2024-11-28 16:00] VITALS: BP 175/100; TEMP 98.1; O2SAT 96
[2024-11-28 20:00] VITALS: BP 145/80; TEMP 98.2; O2SAT 95
[2024-11-28] MEDS: *INSULIN REGULAR(HUMULIN R)HUM 100 UNIT/ML VIAL SQ PRN (21:49)
[2024-11-29] MEDS ORDERED: CLOB15OI3 TP (07:21)
[2024-11-29 08:00] VITALS: BP 129/74; TEMP 97.5; O2SAT 98
[2024-11-29] MEDS ORDERED: DOSING PER PHARMACY-VANCOMYCIN IV XX PRN (08:30)
[2024-11-29 09:33] LABS: CALCIUM, SERUM 8.9 mg/dL (8.5-10.1); CREATININE 1.2 mg/dL (0.6-1.3); SODIUM SERUM 138.0 mmol/L (136-145); UREA NITROGEN, BLOOD 18.0 mg/dL (7-18)
[2024-11-29] MEDS: VANCOMYCIN HCL 1.25 GM in IV D5W 250 ML IV ONE (10:32)
[2024-11-29 16:00] VITALS: BP 130/54; TEMP 98.1; O2SAT 94
[2024-11-29 20:00] VITALS: BP 128/64; TEMP 98.1; O2SAT 93
[2024-11-30] MEDS: VANCOMYCIN HCL 1.25 GM in IV D5W 250 ML IV SCH (09:19)
[2024-11-30] MEDS ORDERED: LEVO500T90 PO (10:29)
[2024-11-30 16:56] VITALS: BP 133/68
[2024-11-30] MEDS ORDERED: INSU100V39 SQ (18:17)
== END 2024-11-30 20:00 | disposition home health service (06) | DRG 596 ==
LOC: ER 14:37 → MED 17:45
PROVIDERS: ADMIT Internal Medicine; ATTEND Internal Medicine
DX: L12.0 Bullous pemphigoid (principal); N39.0 Urinary tract infection, site not specified; R53.1 Weakness; Z86.73 Personal history of transient ischemic attack (TIA), and cerebral infarction without residual deficits; E11.9 Type 2 diabetes mellitus without complications; E03.9 Hypothyroidism, unspecified; G20.A1 Parkinson's disease without dyskinesia, without mention of fluctuations; F02.80 Dementia in other diseases classified elsewhere, unspecified severity, without behavioral disturbance, psychotic disturbance, mood disturbance, and anxiety; I10 Essential (primary) hypertension; L50.9 Urticaria, unspecified; Z79.4 Long term (current) use of insulin; K59.00 Constipation, unspecified; B96.5 Pseudomonas (aeruginosa) (mallei) (pseudomallei) as the cause of diseases classified elsewhere; S60.522A Blister (nonthermal) of left hand, initial encounter; S60.521A Blister (nonthermal) of right hand, initial encounter; X58.XXXA Exposure to other specified factors, initial encounter; Y93.9 Activity, unspecified; Y92.89 Other specified places as the place of occurrence of the external cause; S90.822A Blister (nonthermal), left foot, initial encounter; S90.821A Blister (nonthermal), right foot, initial encounter; S31.000A Unspecified open wound of lower back and pelvis without penetration into retroperitoneum, initial encounter; R21 Rash and other nonspecific skin eruption
CPT/HCPCS: 36415; 71045-TC; 80048-TC; 80076-TC; 81001; 82962-TC; 83605-TC; 83735-TC; 84100-TC; 85025-TC; 85652-TC; 85730-TC; 86140-TC; 86225; 86235; 86592; 86593; 87040-TC; 87086-TC; 87186-TC; 87806; 97110-TC; 97112-TC; 97530-TC; 97535-TC; A4223; A6223; G0378; J1815; J7050; J7060